=== PATIENT | female | born 1990 | race African-American/Black ===

== ENCOUNTER 2017-01-26 14:20 | Emergency (ER) | payer MEDICAID ==
[~2017-01-26 14:20] MED LIST: SPRI28TA PO
[2017-01-26 14:21] VITALS: BP 115/70; PULSE 96; RESP 17; TEMP 98.2; O2SAT 98
--- NOTE | 2017-01-26 15:51 | PD ---
HPI . chipped tooth since Chief Complaint: Oral / Dental Pain or Problem Time Seen by Provider: 15:50 Travel History International Travel<30 days: No Contact w/Intl Traveler<30days: No Traveled to known affect area: No History of Present Illness HPI 26-year-old female here with complaints of a chipped tooth since last . Patient says that she's not been able to see the dentist as they're not open on the weekends. She is here requesting something for pain. Upon examination # 12 is slightly cracked. There is no infection or oral abscess collection. I discussed with patient that she could use [id number] ibuprofen for this. There is no dentist on staff here that can assist her with her issues. She will need to follow-up with the dentist next week. PFSH Past Medical History Cardiovascular Problems: Yes Genitourinary: No Musculoskeletal: No Neurologic: No Respiratory: No Immunizations Current: No ?: Not : 0 Para: 0 Past Surgical History Cardiac Surgery: Yes (PREMATURE INFANT- REPAIR OF HOLE IN HEART AGE ONE MONTH) Section: Yes Eye Surgery: Yes (BILATERAL CATARACT SURGERY/ A CHILD) Gynecologic Surgery: Yes (C SECTION X 2) Other Surgery: Yes Social History Alcohol Use: No Tobacco Use: No Substance Use: No Allergies-Medications (Allergen,Severity, Reaction): Coded Allergies: No Known Allergies (Verified , 10/04/16) Reported Meds & Prescriptions Reported Meds & Active Scripts Active Sprintec 28 (Norgestimate-Ethinyl Estradiol) 0.25-35 mg-Mcg Tab 1 Tab PO DAILY Review of Systems General / Constitutional: No: Fever Eyes: No: Visual changes HENT: Positive: Dental Difficulties, No: Headaches Cardiovascular: No: Chest Pain or Discomfort Respiratory: No: Shortness of Breath Gastrointestinal: No: Abdominal Pain Genitourinary: No: Dysuria Musculoskeletal: No: Pain Skin: No Rash Neurologic: No: Weakness Psychiatric: No: Depression Endocrine: No: Polydipsia Hematologic/Lymphatic: No: Easy Bruising Physical Exam Narrative GENERAL: AAO x 3, no acute distress, Well-nourished, well-developed patient. SKIN: Warm and dry. No visible rashes or bruising. HEAD: Normocephalic and atraumatic. EYES: No scleral icterus. No injection or drainage. ENT: No nasal drainage noted. Mucous membranes pink. Airway patent. #12 chipped , no evidence of infection, no swelling NECK: Supple, trachea midline. No JVD. CARDIOVASCULAR: Regular rate and rhythm without murmurs, gallops, or rubs. RESPIRATORY: Breath sounds equal bilaterally. No accessory muscle use. No rhonchi or rales. GASTROINTESTINAL: Abdomen soft, non-tender, nondistended. EXTREMITIES: No cyanosis or edema. BACK: Nontender without obvious deformity. No CVA tenderness. PSYCH: AAO x 3, normal affect. Data Data Last Documented VS Vital Signs Date Time Temp Pulse Resp B/P Pulse Ox O2 Delivery O2 Flow Rate FiO2 01/26/17 14:21 98.2 96 17 115/70 98 MDM Medical Decision Making Medical Screen Exam Complete: Yes Emergency Medical Condition: No Medical Record Reviewed: Yes Differential Diagnosis cracked tooth, dental caries, less likely oral abscess Narrative Course 26-year-old female here with complaints of a chipped tooth since last . Patient says that she's not been able to see the dentist as they're not open on the weekends. She is here requesting something for pain. Upon examination # 12 is slightly cracked. There is no infection or oral abscess collection. I discussed with patient that she could use [id number] ibuprofen for this. There is no dentist on staff here that can assist her with her issues. She will need to follow-up with the dentist next week. A medical screening exam was performed: At the time of evaluation the presenting medical condition was determined not to be of an emergent nature. The patient was given the option of receiving additional care, but declined. Patient was given options for additional community resources from which to obtain care. The Patient Has Been advised to seek medical attention for their presenting complaint. The patient has been advised to return to the ER at any time if an emergent condition develops. Diagnosis Primary Impression: Encounter for medical screening examination Condition: Stable Elvia Thornton Jan 26, 2017 15:51
[2017-02-05] MEDS ORDERED: DEPO104I SQ (15:14)
[2017-02-05] MEDS ORDERED: TOPA25TA8 PO (15:24)
[2017-02-05] MEDS ORDERED: SUMA25TA2 PO (15:24)
[2017-03-13] MEDS ORDERED: PREN28CA PO (14:01)
[2017-04-25] MEDS ORDERED: MACR100C2 PO (14:29)
== END 2017-01-26 16:08 | disposition left against medical advice (07) ==
LOC: NETRI 14:20
DX: K08.89 Other specified disorders of teeth and supporting structures (principal); K03.81 Cracked tooth
CPT/HCPCS: 99281

== ENCOUNTER → 2017-04-25 | Outpatient (CLI) | payer MEDICAID ==
[~2017-04-25] MED LIST changes: +DEPO104I SQ; +MACR100C2 PO; +NITR1CAP36 PO; +PREN28CA PO; -SPRI28TA PO; +SUMA25TA2 PO; +TOPA25TA8 PO
== END ==
LOC: HPND 11:00
PROVIDERS: ATTEND Family Medicine
DX: O09.32 Supervision of pregnancy with insufficient antenatal care, second trimester (principal); Z3A.23 23 weeks gestation of pregnancy
CPT/HCPCS: 76805

== ENCOUNTER → 2017-05-22 | Outpatient (CLI) | payer MEDICAID ==
[~2017-05-22] MED LIST changes: +FERR325T2 PO
== END ==
LOC: HPND 12:03
PROVIDERS: ATTEND Family Medicine
DX: O09.32 Supervision of pregnancy with insufficient antenatal care, second trimester (principal); O35.2XX0 Maternal care for (suspected) hereditary disease in fetus, not applicable or unspecified; Z3A.27 27 weeks gestation of pregnancy
CPT/HCPCS: 76811; 76825; 76827; 93325

== ENCOUNTER → 2017-07-04 | Outpatient (CLI) | payer MEDICAID ==
[~2017-07-04] MED LIST changes: -DEPO104I SQ; +IBUP-232 PO; -MACR100C2 PO; -NITR1CAP36 PO; +OXYC1TAB63 PO; +SENN1TAB PO; -SUMA25TA2 PO; -TOPA25TA8 PO
== END ==
LOC: HPND 12:31
PROVIDERS: ATTEND Family Medicine
DX: O35.8XX0 Maternal care for other (suspected) fetal abnormality and damage, not applicable or unspecified (principal); O32.1XX0 Maternal care for breech presentation, not applicable or unspecified; O09.33 Supervision of pregnancy with insufficient antenatal care, third trimester; Z3A.33 33 weeks gestation of pregnancy
CPT/HCPCS: 76816

== ENCOUNTER 2017-08-14 10:09 | Inpatient (IN) | payer MEDICAID ==
[2017-08-14] VITALS (15 sets, daily range): BP systolic 123–151; BP diastolic 56–82; PULSE 76–99; RESP 10–19; TEMP 97.8–99; O2SAT 99–100
[~2017-08-14] VITALS: Ht 157.5 cm; Wt 78.0 kg
[~2017-08-14 10:09] MED LIST changes: -IBUP-232 PO; -OXYC1TAB63 PO; -SENN1TAB PO
[2017-08-14] MEDS ORDERED: LACTATED RINGER'S 1000 ML INJ 1,000 ML IV ONE (10:17)
--- NOTE | 2017-08-14 10:36 | HHI.HP ---
HPI Chief Complaint Scheduled Date Seen: Aug 14, 2017 Time Seen: 10:25 Travel History International Travel<30 Days: No Contact w/Intl Traveler<30Days: No History of Present Illness HPI 27-year-old G for P3 at 39 weeks gestation presenting for scheduled . Today she feels well. Denies vaginal bleeding, leakage of fluid, contractions. Endorses movement. History Past Medical History Narrative Medical Urine GBS positive ?Gestational diabetes (failed [place] screen, never got 3h GTT) Obstetric History Obstetric History C-sections in 2010, 2012, 2013 Past Surgical History Narrative Surgical C-sections (see above) Social History Alcohol Use: No Tobacco Use: No Substance Abuse: No Allergies-Medications (Allergen,Severity, Reaction): Coded Allergies: No Known Allergies (Verified , 08/08/17) Home Meds Active Scripts Ferrous Sulfate DR (Ferrous Sulfate DR) 325 Mg Tabdr, 325 MG PO TID, #90 TAB 11 Refills Prov:Kwabena Hebert MD R3 07/25/17 Vit W/ Ferrous Fumara (C-Kuldeep Dha 28-1-200 mg) 1 Cap Cap, 1 CAP PO DAILY, #30 BOTTLE 9 Refills Prov:Sergio Neil MD R3 03/13/17 Review of Systems Except as stated in HPI: all other systems reviewed are Neg Physical Exam Narrative GENERAL: Well-nourished, well-developed patient. SKIN: Warm and dry. HEAD: Normocephalic and atraumatic. EYES: No scleral icterus. No injection or drainage. ENT: No nasal drainage noted. Mucous membranes pink. Airway patent. CARDIOVASCULAR: Regular rate and rhythm without murmurs, gallops, or rubs. RESPIRATORY: Breath sounds equal bilaterally. No accessory muscle use. ABDOMEN/GI: Abdomen soft, non-tender, no rebound, no guarding FHT's: Category: 1 Baseline: 140 Reactive: Y Variability: moderate Decels: N EXTREMITIES: No cyanosis or edema. NEUROLOGICAL: Awake and alert. Motor and sensory grossly within normal limits. Normal speech. Caprini VTE Risk Assessment Caprini VTE Risk Assessment: No/Low Risk (score <= 1) Data Data Vital Signs Reviewed: Yes Orders Orders Admit To Inpatient (08/14/17 ) Code Status (08/14/17 10:17) Vital Signs (Adult) .ON ADMISSION (08/14/17 10:17) Activity Oob Ad Alma Delia (08/14/17 10:17) Heart (08/14/17 10:17) Urinary Catheter Management GENIE.Q8H (08/14/17 10:17) ^ Preps (08/14/17 10:17) Scd / Vladislav / Foot Pump GENIE.QSHIFT (08/14/17 10:17) ^ Ultrasound For Locatio (08/14/17 10:17) Diet Npo (08/14/17 Lunch) Lactated Ringer's 1000 Ml Inj (Lr 1000 M (08/14/17 10:17) Lactated Ringer's 1000 Ml Inj (Lr 1000 M (08/14/17 10:47) Cefazolin 2 Gm Premix (Ancef 2 Gm Premix (08/14/17 11:30) Citric Acid-Sodium Citrate Liq (Bicitra (08/14/17 12:00) Type And Screen (08/14/17 10:17) Complete Blood Count With Diff (08/14/17 10:17) Urinalysis - C+S If Indicated (08/14/17 10:17) Inpatient Certification (08/14/17 ) Specimen To Be Collected PRN (08/14/17 10:17) Group B Strep: Positive (Urine in 1st trimester, genital screen pos in 3rd trimester) Assessment/Plan Assessment and Plan 27-year-old at 39 weeks presenting for scheduled #1 IUP - Category 1 tracing, reassuring #2 scheduled - admit to labor and delivery, routine preop orders #3 GBS positive, genital and urine - Ancef prior to delivery, inform team Roger Elliott MD R2 Aug 14, 2017 10:36
[2017-08-14] MEDS ORDERED: LACTATED RINGER'S 1000 ML INJ 1,000 ML IV SCH ×2 (10:47→18:00)
[2017-08-14 11:00] LABS: BACTERIA, URINE OCC /hpf; BLOOD, URINE NEG (NEG); GLUCOSE,URINE NEG (NEG); KETONE, URINE NEG (NEG); NITRITE,URINE NEG (NEG); PH, URINE 6.5 (5.0-8.5); SQUAMOUS EPITHELIAL CELL URINE 11 /hpf (0-5); TRANSITIONAL EPI CELLS, URINE <1 /hpf; URINE COLOR YELLOW (YELLW/STRAW)
[2017-08-14 11:01] LABS: COMMENT (UR) CULT NOT INDICATED; CULTURE IF INDICATED CULT NOT INDICATED
[2017-08-14 11:04] LABS: BASOPHIL % 0.4 % (0.0-2.0); EOSINOPHIL # 0.1 TH/MM3 (0-0.4); EOSINOPHIL % 1.2 % (0.0-4.0); HEMATOCRIT 35.8 % (35.0-46.0); HEMO FLAGS DIFF FINAL; LYMPH % 24.4 % (9.0-44.0); LYMPHOCYTE # 2.6 TH/MM3 (1.0-4.8); MEAN CORPUSCULAR HEMOGLOBIN 26.1 PG (27.0-34.0); MONO % 7.1 % (0.0-8.0); NEUT % 66.9 % (16.0-70.0); PLATELET COUNT 187 TH/MM3 (150-450); RED BLOOD COUNT 4.53 MIL/MM3 (4.00-5.30); RED CELL DISTRIBUTION WIDTH 16.2 % (11.6-17.2); WHITE BLOOD COUNT 10.5 TH/MM3 (4.0-11.0)
[2017-08-14] MEDS ORDERED: ceFAZolin 2 GM PREMIX 50 ML IV SCH (11:30)
[2017-08-14] MEDS ORDERED: EPIDURAL-NO SYSTEMIC NARCOTICS PRN (11:49)
[2017-08-14] MEDS ORDERED: EPIDURAL-DIPHENHYDRAMINE HCL 50 MG/ML VIAL IV PUSH PRN (11:49)
[2017-08-14] MEDS ORDERED: EPIDURAL-NALOXONE HCL 0.4 MG/ML AMP IV PUSH PRN (11:49)
[2017-08-14] MEDS ORDERED: EPIDURAL-DIPHENHYDRAMINE HCL 50 MG CAP PO PRN (11:49)
[2017-08-14] MEDS ORDERED: EPIDURAL-DO NOT ADMINISTER ANTICOAGULANTS PRN (11:49)
[2017-08-14] MEDS ORDERED: CITRIC ACID-SODIUM CITRATE LIQ 30 ML UDC PO SCH (12:00)
[2017-08-14] MEDS ORDERED: SODIUM CHLORIDE 0.9% FLUSH 10 ML FLUSH IV FLUSH PRN (13:00)
[2017-08-14] MEDS ORDERED: OXYTOCIN 30 UNITS-500ML PREMIX 500 ML IV ONE (13:00)
[2017-08-14] MEDS ORDERED: ZOLPIDEM TARTRATE 5 MG TAB PO PRN (13:00)
[2017-08-14] MEDS ORDERED: oxyCODONE/ACETAMINOPHEN 5 MG/325 MG TAB PO PRN (13:00)
[2017-08-14] MEDS ORDERED: SIMETHICONE 80 MG CHEWABLE TAB PO PRN (13:00)
[2017-08-14] MEDS ORDERED: ONDANSETRON HCL 4 MG/2 ML VIAL IV PUSH PRN (13:00)
[2017-08-14] MEDS ORDERED: ACETAMINOPHEN 325 MG TAB PO PRN (13:00)
[2017-08-14] MEDS ORDERED: ACETAMINOPHEN 1000 MG/100 ML 100 ML IV ONE (14:00)
--- NOTE | 2017-08-14 16:25 | MP ---
cc: APURVA CARABLLO MD DATE OF SURGERY: 08/14/2017 PREOPERATIVE DIAGNOSIS: Term intrauterine , previous section x 3, for repeat section at 39-weeks. POSTOPERATIVE DIAGNOSIS: Term intrauterine , previous section x 3, for repeat section at 39-weeks. PROCEDURE PERFORMED Repeat low transverse section. SURGEON Apurva Carballo MD G[employer]IC [employer] WORKER Wanda. ANESTHESIA Spinal. PREOPERATIVE NOTE The patient is a 27-year-old black female, G4, P3, previous section x 3, who requests repeat section at 39-weeks. PROCEDURE The patient was taken to the operating room and placed in the supine position on the operating table. Adequate spinal anesthesia was administered. She was prepped and draped for abdominal surgery. A previous Pfannenstiel incision was excised out and cast away. The incision was carried through fascia sharply and the fascia dissected laterally and off the rectus muscle with Bovie coautery. The peritoneal cavity was entered sharply at that time and the incision was extended superior and inferiorly with care used to avoid bladder injury. The bladder blade was placed on the lower edge of the incision. The posterior peritoneum was reflected off the lower uterine segment and placed upon the bladder blade. Transverse hysterotomy was made and extended bluntly bilaterally and a clear fluid noted. A female was delivered at 12:17 p.m., weight 4070 grams, 9 pounds 0 ounces. Apgars were 8 and 9. There were no complications with delivery. Cord blood was obtained. Placenta was manually extracted. The uterus exteriorized, the hysterotomy closed with running layer of 0-Chromic followed by imbricating suture of same. The uterus was examined and noted to have normal ovaries and tubes bilaterally. The uterus was replaced in the peritoneal cavity. The cul-de-sac gutter suctioned from blood. The rectus muscle was reapproximated with stick-ties over 2-0 Vicryl. The fascia was closed in running layer of 0-Vicryl. The subcutaneous tissue was reapproximated with 3-0 plain gut running suture. Skin was closed with 3-0 Monocryl subcuticular stitch. Fresh dressing was applied. Estimated blood loss was 500 ccs. There were no complications. Sponge and needle count were correct x 2. The patient went to recovery in stable condition. MD SOCRATES Denis/PAULY /1:50 PM /4:01 PM
[2017-08-14] MEDS ORDERED: SODIUM CHLORIDE 0.9% FLUSH 10 ML FLUSH IV FLUSH SCH (21:00)
[2017-08-14] MEDS: oxyCODONE/ACETAMINOPHEN 5 MG/325 MG TAB PO PRN (22:42)
[2017-08-14] MEDS: IBUPROFEN 600 MG TAB PO PRN (22:42)
[2017-08-14] MEDS ORDERED: OXYTOCIN 30 UNITS-500ML PREMIX 500 ML IV PRN (23:00)
[2017-08-15 04:30] VITALS: BP 124/65; PULSE 76; RESP 18; TEMP 98.1
[2017-08-15] MEDS: IBUPROFEN 600 MG TAB PO PRN ×3 (05:36→20:06)
[2017-08-15] MEDS: DOCUSATE SODIUM 50 MG/SENNA 8.6 MG TAB PO PRN (05:36)
[2017-08-15] MEDS: oxyCODONE/ACETAMINOPHEN 5 MG/325 MG TAB PO PRN ×3 (05:36→20:06)
[2017-08-15 05:49] LABS: AUTOMATED NEUTROPHIL # 11.7 TH/MM3 (1.8-7.7); BASOPHIL % 0.2 % (0.0-2.0); EOSINOPHIL % 0.3 % (0.0-4.0); HEMATOCRIT 31.7 % (35.0-46.0); HEMO FLAGS DIFF FINAL; LYMPH % 15.8 % (9.0-44.0); LYMPHOCYTE # 2.4 TH/MM3 (1.0-4.8); MEAN CELL VOLUME 78.9 FL (80.0-100.0); MEAN CORPUSCULAR HEMOGLOBIN 26.3 PG (27.0-34.0); MEAN CORPUSCULAR HGB CONC 33.3 % (32.0-36.0); MONO % 5.8 % (0.0-8.0); NEUT % 77.9 % (16.0-70.0); PLATELET COUNT 173 TH/MM3 (150-450); RED BLOOD COUNT 4.02 MIL/MM3 (4.00-5.30); RED CELL DISTRIBUTION WIDTH 16.1 % (11.6-17.2); WHITE BLOOD COUNT 15.1 TH/MM3 (4.0-11.0)
[2017-08-15 08:00] VITALS: BP 120/64; PULSE 77; TEMP 98.2; TEMP 98.4
--- NOTE | 2017-08-15 08:20 | HHI.OB ---
Subjective Remarks 27 year old female s/p repeat C/S at 39 wks gestation, POD1. AFVSS. Patient reports she is feeling well. Bleeding is decreasing and pain is well- controlled. She is breast feeding and bonding well with baby. Ambulating without difficulties. She is tolerating a diet without nausea or vomiting. She has had a bowel movement. She has not passed gas. Denies chest pain, dysuria, shortness of breath, or calf pain. Objective Vitals/I&O Vital Signs Date Time Temp Pulse Resp B/P (MAP) Pulse Ox O2 Delivery O2 Flow Rate FiO2 08/15/17 04:30 76 18 124/65 (84) 08/15/17 04:30 98.1 08/14/17 19:30 97.8 86 18 147/81 (103) 08/14/17 15:15 97.9 08/14/17 15:15 76 16 143/77 (99) 08/14/17 14:33 99 08/14/17 14:33 123/56 (78) 100 08/14/17 14:25 98.0 08/14/17 14:24 98 18 131/69 (89) 99 08/14/17 14:07 100 08/14/17 14:07 87 128/59 (82) 08/14/17 13:54 19 08/14/17 13:50 87 142/65 (90) 100 08/14/17 13:40 16 08/14/17 13:35 79 131/64 (86) 100 08/14/17 13:20 151/68 (95) 08/14/17 13:20 90 10 151/65 (93) 08/14/17 13:03 87 12 129/58 (81) 100 08/14/17 13:03 97.8 08/14/17 10:47 98.4 08/14/17 10:39 97 129/82 (98) 08/14/17 10:26 99.0 Result Diagram: 08/15/17 0533 Objective Remarks GENERAL: Well-nourished, well-developed patient. CARDIOVASCULAR: Regular rate and rhythm without murmurs, gallops, or rubs. RESPIRATORY: Breath sounds equal bilaterally. No accessory muscle use. ABDOMEN/GI: Abdomen soft, non-tender, bowel sounds present. Incision: covered in pressure dressing, will check POD2 Fundus: Firm, non-tender at umbilicus. GENITOURINARY: Light to moderate bleeding. EXTREMITIES: No cyanosis or edema, non-tender, without signs of DVT. Medications and IVs Current Medications Medications (Trade) Dose Ordered Sig/Winston Route Start Time Stop Time Status Last Admin Cefazolin Sodium/ Dextrose 50 ml @ 100 mls/hr EQUINE VET IV 08/14/17 11:30 08/18/17 11:29 08/14/17 11:25 (Bicitra Liq) 30 ml EQUINE VET PO 08/14/17 12:00 08/18/17 11:59 08/14/17 11:24 Lactated Ringer's 1,000 ml @ 100 mls/hr Q10H IV 08/14/17 18:00 08/15/17 13:59 08/14/17 21:43 Oxytocin 500 ml @ 100 mls/hr UNSCH X1 PRN IV 08/14/17 23:00 08/15/17 22:59 (NS Flush) 2 ml BID IV FLUSH 08/14/17 21:00 (NS Flush) 2 ml UNSCH PRN IV FLUSH 08/14/17 13:00 (Mylicon Chew) 80 mg QID PRN PO 08/14/17 13:00 (Tylenol) 650 mg Q6H PRN PO 08/14/17 13:00 (Motrin) 600 mg Q6H PRN PO 08/14/17 13:00 08/15/17 05:36 (Percocet 5-325 Mg) 1 tab Q4H PRN PO 08/14/17 13:00 08/15/17 05:36 (Percocet 5-325 Mg) 2 tab Q4H PRN PO 08/14/17 13:00 (Mary-Colace) 2 tab Q12H PRN PO 08/14/17 13:00 08/15/17 05:36 (Ambien) 5 mg HS PRN PO 08/14/17 13:00 (M-M-R Ii Inj) 0.5 ml ONCE ONCE SQ 08/15/17 16:00 08/15/17 16:01 (Boostrix Inj) 0.5 ml ONCE ONCE IM 08/15/17 16:00 08/15/17 16:01 (Zofran Inj) 4 mg Q6H PRN IV PUSH 08/14/17 13:00 Miscellaneous Information NO SYSTEMIC NARCOTICS TO BE GIVEN FO... UNSCH PRN .XX 08/14/17 11:49 08/15/17 11:48 (Narcan Inj) 0.4 mg UNSCH PRN IV PUSH 08/14/17 11:49 08/15/17 11:48 (Benadryl Inj) 25 mg Q6H PRN IV PUSH 08/14/17 11:49 08/15/17 11:48 (Benadryl) 50 mg Q6H PRN PO 08/14/17 11:49 08/15/17 11:48 Miscellaneous Information ALL NURSING DEPARTMENTS UNSCH PRN .XX 08/14/17 11:49 08/15/17 11:48 Assessment/Plan Assessment and Plan 27 yo female s/p repeat C/S, POD1, GBS positive s/p Ancef - AFVSS - Continue routine care - Motrin and Percocet PRN pain - Encourage OOB - Pelvic rest x 6 wks. Will need 1 week incision check. - Contraception:Nexplanon - Anticipate D/C POD 3 Carol Solano MD R1 Aug 15, 2017 08:20
[2017-08-15] MEDS ORDERED: MEASLES, MUMPS, RUBELLA VACCINE 0.5 ML VIAL SQ ONE (16:00)
[2017-08-15] MEDS ORDERED: DIPHTH/TETANUS/ACEL PERTUSSIS (BOOSTER) 0.5 ML VIAL/PFS IM ONE (16:00)
[2017-08-15 21:10] VITALS: TEMP 98
[2017-08-16] MEDS: IBUPROFEN 600 MG TAB PO PRN ×4 (01:58→20:15)
[2017-08-16] MEDS: oxyCODONE/ACETAMINOPHEN 5 MG/325 MG TAB PO PRN ×4 (01:58→20:16)
[2017-08-16] MEDS: DOCUSATE SODIUM 50 MG/SENNA 8.6 MG TAB PO PRN (07:49)
[2017-08-16 08:00] VITALS: BP 140/75; PULSE 84; RESP 18; TEMP 97.9
--- NOTE | 2017-08-16 09:25 | HHI.OB ---
Subjective Remarks 27 year old female s/p repeat C/S at 39 wks gestation, POD2. AFVSS. Patient reports she is feeling well. Bleeding is decreasing and pain is well- controlled. She is breast feeding and bonding well with baby. Ambulating without difficulties. She is tolerating a diet without nausea or vomiting. She has not had a bowel movement. She has not passed gas. Denies chest pain, dysuria , shortness of breath, or calf pain. (Carol Solano MD R1) Objective Vitals/I&O Vital Signs Date Time Temp Pulse Resp B/P (MAP) Pulse Ox O2 Delivery O2 Flow Rate FiO2 08/15/17 21:10 98.0 (Carol Solano MD R1) Result Diagram: 08/15/17 0533 Objective Remarks GENERAL: Well-nourished, well-developed patient. CARDIOVASCULAR: Regular rate and rhythm without murmurs, gallops, or rubs. RESPIRATORY: Breath sounds equal bilaterally. No accessory muscle use. ABDOMEN/GI: Abdomen soft, non-tender, bowel sounds present. Incision: steri strips in place, clean and dry Fundus: Firm, non-tender at umbilicus. GENITOURINARY: Light to moderate bleeding. EXTREMITIES: No cyanosis or edema, non-tender, without signs of DVT. Medications and IVs Current Medications Medications (Trade) Dose Ordered Sig/Winston Route Start Time Stop Time Status Last Admin Cefazolin Sodium/ Dextrose 50 ml @ 100 mls/hr YARN WEIGHER IV 08/14/17 11:30 08/18/17 11:29 08/14/17 11:25 (Bicitra Liq) 30 ml YARN WEIGHER PO 08/14/17 12:00 08/18/17 11:59 08/14/17 11:24 (NS Flush) 2 ml BID IV FLUSH 08/14/17 21:00 (NS Flush) 2 ml UNSCH PRN IV FLUSH 08/14/17 13:00 (Mylicon Chew) 80 mg QID PRN PO 08/14/17 13:00 (Tylenol) 650 mg Q6H PRN PO 08/14/17 13:00 (Motrin) 600 mg Q6H PRN PO 08/14/17 13:00 08/16/17 07:49 (Percocet 5-325 Mg) 1 tab Q4H PRN PO 08/14/17 13:00 08/16/17 07:50 (Percocet 5-325 Mg) 2 tab Q4H PRN PO 08/14/17 13:00 (Mary-Colace) 2 tab Q12H PRN PO 08/14/17 13:00 08/16/17 07:49 (Ambien) 5 mg HS PRN PO 08/14/17 13:00 (Zofran Inj) 4 mg Q6H PRN IV PUSH 08/14/17 13:00 (Carol Solano MD R1) Assessment/Plan Assessment and Plan 27 yo female s/p repeat C/S, POD2, GBS positive s/p Ancef - AFVSS - Continue routine care - Motrin and Percocet PRN pain - Encourage OOB - Pelvic rest x 6 wks. Will need 1 week incision check. - Contraception:Nexplanon - Anticipate D/C POD 3 (Carol Solano MD R1) Attending Attestation Patient seen and examined, discussed with resident team. I agree with assessment and management as documented and discussed with me. (Kimberly Dalal MD) Carol Solano MD R1 Aug 16, 2017 09:25 Kimberly Dalal MD Aug 16, 2017 12:02
[2017-08-16 20:00] VITALS: BP 129/81; PULSE 86; RESP 16; TEMP 98
[2017-08-17] MEDS: oxyCODONE/ACETAMINOPHEN 5 MG/325 MG TAB PO PRN ×2 (01:52→07:59)
[2017-08-17] MEDS: IBUPROFEN 600 MG TAB PO PRN ×2 (01:53→07:59)
--- NOTE | 2017-08-17 07:11 | HHI.OB ---
Subjective Post Operative Day: 3 Remarks 27 year old female s/p repeat at 39/1 wks gestation, POD 3. AFVSS except for intermittently elevated BP but otherwise WNL. Patient reports she is feeling well. Bleeding is decreasing and pain is well-controlled. She is formula feeding and bonding well with baby. Ambulating without difficulties. She is tolerating a diet without nausea or vomiting. She has not had a bowel movement. She has passed gas. Denies chest pain, dysuria, shortness of breath, IBARRA, vision changes, or calf pain. (Chelsea Watters MD, R3) Remarks Patient seen and evaluated with resident under direct supervision, agree with assessment and plan. (Geronimo Alex MD) Objective Vitals/I&O Vital Signs Date Time Temp Pulse Resp B/P (MAP) Pulse Ox O2 Delivery O2 Flow Rate FiO2 08/16/17 20:00 98.0 86 16 129/81 (97) 08/16/17 08:00 97.9 84 18 140/75 (96) (Chelsea Watters MD, R3) Result Diagram: 08/15/17 0533 Objective Remarks GENERAL: Well-nourished, well-developed patient. CARDIOVASCULAR: Regular rate and rhythm without murmurs, gallops, or rubs. RESPIRATORY: Breath sounds equal bilaterally. No accessory muscle use. ABDOMEN/GI: Abdomen soft, non-tender. Incision: steri strips in place, clean and dry Fundus: Firm, non-tender at umbilicus. GENITOURINARY: Light to moderate bleeding. EXTREMITIES: No cyanosis or edema, non-tender, without signs of DVT. Medications and IVs Current Medications Medications (Trade) Dose Ordered Sig/Winston Route Start Time Stop Time Status Last Admin Cefazolin Sodium/ Dextrose 50 ml @ 100 mls/hr STRAIGHT LINE PRESS SETTER IV 08/14/17 11:30 08/18/17 11:29 08/14/17 11:25 (Bicitra Liq) 30 ml STRAIGHT LINE PRESS SETTER PO 08/14/17 12:00 08/18/17 11:59 08/14/17 11:24 (NS Flush) 2 ml BID IV FLUSH 08/14/17 21:00 (NS Flush) 2 ml UNSCH PRN IV FLUSH 08/14/17 13:00 (Mylicon Chew) 80 mg QID PRN PO 08/14/17 13:00 (Tylenol) 650 mg Q6H PRN PO 08/14/17 13:00 (Motrin) 600 mg Q6H PRN PO 08/14/17 13:00 08/17/17 01:53 (Percocet 5-325 Mg) 1 tab Q4H PRN PO 08/14/17 13:00 08/17/17 01:52 (Percocet 5-325 Mg) 2 tab Q4H PRN PO 08/14/17 13:00 (Mary-Colace) 2 tab Q12H PRN PO 08/14/17 13:00 08/16/17 07:49 (Ambien) 5 mg HS PRN PO 08/14/17 13:00 (Zofran Inj) 4 mg Q6H PRN IV PUSH 08/14/17 13:00 (Chelsea Watters MD, R3) Assessment/Plan Assessment and Plan 27 yo female s/p repeat C/S, POD3 - AFVSS * BP not consistently elevated and patient is asymptomatic. No/low concern for pre-E at this time. - Continue routine care - Motrin and Percocet PRN pain - Encourage OOB - Pelvic rest x 6 wks. Will need 1-2 week incision check. - Contraception:Nexplanon as outpatient. Declines Depo while inpatient - Anticipate D/C today wdw Dr. Paris (Chelsea Watters MD, R3) Chelsea Watters MD, R3 Aug 17, 2017 07:11 Geronimo Alex MD Aug 17, 2017 09:51
[2017-08-17] MEDS ORDERED: IBUP-232 PO (07:13)
[2017-08-17] MEDS ORDERED: OXYC1TAB63 PO (07:13)
[2017-08-17] MEDS ORDERED: SENN1TAB PO (07:13)
--- NOTE | 2017-08-17 07:14 | HHI.DCPOC ---
Discharge Care Plan Diagnosis: (1) delivery delivered Report Symptoms to Your Doctor -Temperature above 100.5 degrees -Redness, of incision or excessive or foul smelling drainage -Unusual pain or calf pain -Increased vaginal bleeding -Painful or difficulty urinating -Feelings of extreme sadness or anxiety after 2 weeks Goals to Promote Your Health * To prevent worsening of your condition and complications * To maintain your health at the optimal level Directions to Meet Your Goals Take your medications as prescribed Follow your dietary instruction Follow activity as directed Ensure plenty of rest for recovery Drink fluids for hydration Keep your appointments as scheduled Take your immunizations and boosters as scheduled If your symptoms worsen call your PCP, if no PCP go to Urgent Care Center or Emergency Room Smoking is Dangerous to Your Health. Avoid second hand smoke Call the 24-hour crisis hotline for domestic abuse at Chelsea Watters MD, R3 Aug 17, 2017 07:14
[2017-08-17 07:30] VITALS: PULSE 85; RESP 18; TEMP 98.4
[2017-08-17] MEDS: DOCUSATE SODIUM 50 MG/SENNA 8.6 MG TAB PO PRN (07:59)
== END 2017-08-17 13:58 | disposition home or self-care (01) | DRG 766 ==
LOC: H2EB 10:09 → H1EA 15:03
PROVIDERS: ADMIT Obstetrics & Gynecology Maternal & Fetal Medicine; ATTEND Obstetrics & Gynecology Maternal & Fetal Medicine
PROC: 10D00Z1 Extraction of Products of Conception, Low, Open Approach (ICD-10-PCS; principal; 2017-08-14)
DX: O99.824 Streptococcus B carrier state complicating childbirth (principal); Z37.0 Single live birth; Z3A.39 39 weeks gestation of pregnancy; O34.211 Maternal care for low transverse scar from previous cesarean delivery
CPT/HCPCS: 59025; 81001; 85025; 86077; 86850; 86870; 86900; 86901; 86922; 90707; 90715; J0131; J0690; J2590; J7120

== ENCOUNTER 2018-02-25 17:35 | Inpatient (IN) | payer MEDICAID ==
[~2018-02-25] VITALS: Ht 154.9 cm; Wt 66.2 kg
[~2018-02-25 17:35] MED LIST changes: +DEPO150I IM; -FERR325T2 PO; -PREN28CA PO
[2018-02-25 17:41] VITALS: BP 119/74; PULSE 132; RESP 17; TEMP 98.1; O2SAT 97
[2018-02-25] MEDS ORDERED: SODIUM CHLOR 0.9% 1000 ML INJ 1,000 ML IV SCH ×3 (18:12→22:00)
[2018-02-25] MEDS ORDERED: SODIUM CHLORIDE 0.9% FLUSH 10 ML FLUSH IV FLUSH PRN ×2 (18:15→22:00)
--- NOTE | 2018-02-25 18:22 | PD ---
HPI Chief Complaint: Syncope/Near-Syncope Time Seen by Provider: 18:04 Travel History International Travel<30 days: No Contact w/Intl Traveler<30days: No Traveled to known affect area: No History of Present Illness HPI 27 YO F presents to the ED for evaluation of "a couple weeks" history of "feeling tired and peeing a lot." Patient estimate 3 urinations per hour. She endorses chest tightness and palpitations for the same time period. She states that today while in [employer] she became "very tired" and felt like she might pass out. She endorses intermittent dizziness. Denies headache, vision changes, SOB, abdominal pain, N/V, changes in bowel habits, dysuria, hematuria. She states her last menstrual period was approximately 15 days ago. Denies risk of . Denies personal history of diabetes, endorses familial history. PFSH Past Medical History Cardiovascular Problems: Yes Genitourinary: No Musculoskeletal: No Neurologic: No Respiratory: No Immunizations Current: No ?: Unknown LMP: 01/2018 : 0 Para: 0 Past Surgical History Cardiac Surgery: Yes (PREMATURE INFANT- REPAIR OF HOLE IN HEART AGE ONE MONTH) Section: Yes Eye Surgery: Yes (BILATERAL CATARACT SURGERY/ A CHILD) Gynecologic Surgery: Yes (C SECTION X 2) Other Surgery: Yes Social History Alcohol Use: No Tobacco Use: No Substance Use: No Allergies-Medications (Allergen,Severity, Reaction): Coded Allergies: No Known Allergies (Verified Adverse Reaction, Unknown, 02/25/18) Reported Meds & Prescriptions Reported Meds & Active Scripts Active Reported Ibuprofen 400 Mg Tab 400 Mg PO Q6H PRN Review of Systems Except as stated in HPI: all other systems reviewed are Neg Physical Exam Narrative GENERAL: Well-nourished, well-developed -Dominican female in no acute distress. SKIN: Focused skin assessment warm/dry. HEAD: Normocephalic. Atraumatic. EYES: No scleral icterus. No injection or drainage. Nystagmus noted, patient states this is her normal. NECK: Supple, trachea midline. No JVD or lymphadenopathy. CARDIOVASCULAR: Regular rate and rhythm without murmurs, gallops, or rubs. RESPIRATORY: Breath sounds clear and equal bilaterally. No accessory muscle use. No tachypnea. GASTROINTESTINAL: Abdomen soft, non-tender, nondistended. MUSCULOSKELETAL: No cyanosis, or edema. NEUROLOGICAL: Awake and alert. Cranial nerves II through XII intact. Motor and sensory grossly within normal limits. Five out of 5 muscle strength in all muscle groups. Normal speech. BACK: Nontender without obvious deformity. No CVA tenderness. Data Data Last Documented VS Vital Signs Date Time Temp Pulse Resp B/P (MAP) Pulse Ox O2 Delivery O2 Flow Rate FiO2 02/25/18 18:53 106 20 131/71 (91) 100 Room Air 02/25/18 17:41 98.1 Orders Orders Electrocardiogram (02/25/18 ) Complete Blood Count With Diff (02/25/18 18:12) Comprehensive Metabolic Panel (02/25/18 18:12) Urinalysis - C+S If Indicated (02/25/18 18:12) Iv Access Insert/Monitor (02/25/18 18:12) Ecg Monitoring (02/25/18 18:12) Oximetry (02/25/18 18:12) Sodium Chlor 0.9% 1000 Ml Inj (Ns 1000 M (02/25/18 18:12) Sodium Chloride 0.9% Flush (Ns Flush) (02/25/18 18:15) Ed Urine Pregnancytest Poc (02/25/18 18:12) Beta Hydroxybutyrate (Acetone) (02/25/18 18:12) Blood Glucose (02/25/18 18:12) Chest, Single Ap (02/25/18 ) Thyroid Stimulating Hormone (02/25/18 18:23) Lactic Acid (02/25/18 18:25) Urine Culture (02/25/18 18:40) Sodium Chlor 0.9% 1000 Ml Inj (Ns 1000 M (02/25/18 19:34) Sodium Chlor 0.9% 1000 Ml Inj (Ns 1000 M (02/25/18 19:34) Dext 5%-Nacl 0.9% 1000 Ml Inj (D5w-Ns 10 (02/25/18 19:34) Insulin Regular (Iv Infusion) (Novolin R (02/25/18 19:45) Potassium Chlor 40 Meq Premix (Kcl 40 Me (02/25/18 19:45) Potassium Chlor 40 Meq Premix (Kcl 40 Me (02/25/18 19:45) Potassium Chlor 20 Meq Premix (Kcl 20 Me (02/25/18 19:45) Potassium Chlor 20 Meq Premix (Kcl 20 Me (02/25/18 19:45) Potassium Chlor 20 Meq Premix (Kcl 20 Me (02/25/18 19:45) Potassium Chlor 20 Meq Premix (Kcl 20 Me (02/25/18 19:45) Potassium Chlor 20 Meq Premix (Kcl 20 Me (02/25/18 19:45) Potassium Chlor 20 Meq Premix (Kcl 20 Me (02/25/18 19:45) Sodium Bicarbonate 8.4% Inj (Sodium Bica (02/25/18 19:45) Sodium Bicarbonate 8.4% Inj (Sodium Bica (02/25/18 19:45) Sodium Phosphate Inj (Sodium Phosphate I (02/25/18 19:45) Hemoglobin (Hgb) A1c (02/25/18 19:34) Arterial Blood Gas (Abg) (02/25/18 ) Admit Order (Ed Use Only) (02/25/18 20:02) Labs Laboratory Tests Test 02/25/18 18:40 02/25/18 19:47 White Blood Count 11.1 TH/MM3 Red Blood Count 6.07 MIL/MM3 Hemoglobin 15.0 GM/DL Hematocrit 48.6 % Mean Corpuscular Volume 80.1 FL Mean Corpuscular Hemoglobin 24.8 PG Mean Corpuscular Hemoglobin Concent 31.0 % Red Cell Distribution Width 14.3 % Platelet Count 280 TH/MM3 Mean Platelet Volume 11.1 FL Neutrophils (%) (Auto) 75.9 % Lymphocytes (%) (Auto) 16.7 % Monocytes (%) (Auto) 7.1 % Eosinophils (%) (Auto) 0.1 % Basophils (%) (Auto) 0.2 % Neutrophils # (Auto) 8.4 TH/MM3 Lymphocytes # (Auto) 1.9 TH/MM3 Monocytes # (Auto) 0.8 TH/MM3 Eosinophils # (Auto) 0.0 TH/MM3 Basophils # (Auto) 0.0 TH/MM3 CBC Comment DIFF FINAL Differential Comment Urine Color LIGHT-YELLOW Urine Turbidity CLEAR Urine pH 6.0 Urine Specific [place] 1.028 Urine Protein TRACE mg/dL Urine Glucose (UA) 1000 mg/dL Urine Ketones 10 mg/dL Urine Occult Blood LARGE Urine Nitrite NEG Urine Bilirubin NEG Urine Urobilinogen LESS THAN 2.0 MG/DL Urine Leukocyte Esterase NEG Urine RBC /hpf Urine WBC 15 /hpf Urine Squamous Epithelial Cells 3 /hpf Microscopic Urinalysis Comment CULTURE INDICATED Blood Urea Nitrogen 28 MG/DL Creatinine 1.74 MG/DL Random Glucose 1171 MG/DL Total Protein 9.7 GM/DL Albumin 4.7 GM/DL Calcium Level 10.9 MG/DL Alkaline Phosphatase 188 U/L Aspartate Amino Transf (AST/SGOT) 26 U/L Alanine Aminotransferase (ALT/SGPT) 42 U/L Total Bilirubin 0.8 MG/DL Sodium Level 123 MEQ/L Potassium Level 6.8 MEQ/L Chloride Level 89 MEQ/L Carbon Dioxide Level 20.4 MEQ/L Anion Gap 14 MEQ/L Estimat Glomerular Filtration Rate 42 ML/MIN Lactic Acid Level 2.4 mmol/L Thyroid Stimulating Hormone 3rd Gen LESS THAN 0.005 uIU/ML B-Hydroxybutyrate 1.57 MMOL/L Blood Gas Puncture Site RT RADIAL Blood Gas Patient Temperature 98.6 Blood Gas HCO3 19 mmol/L Blood Gas Base Excess -6.0 mmol/L Blood Gas Oxygen Saturation 94 % Arterial Blood pH 7.33 Arterial Blood Partial Pressure CO2 37 mmHg Arterial Blood Partial Pressure O2 90 mmHG Arterial Blood Oxygen Content 19.1 Vol % Arterial Blood Carboxyhemoglobin 0.8 % Arterial Blood Methemoglobin 0.7 % Blood Gas Hemoglobin 14.4 G/DL Oxygen Delivery Device ROOM AIR Blood Gas Inspired Oxygen 21 % MDM Medical Decision Making Medical Screen Exam Complete: Yes Emergency Medical Condition: Yes Differential Diagnosis new onset DM versus metabolic derangement versus Narrative Course 27 YO F presents to the ED for evaluation of "a couple weeks" history of "feeling tired and peeing a lot." Patient estimate 3 urinations per hour. She endorses chest tightness and palpitations for the same time period. She states that today while in [employer] she became "very tired" and felt like she might pass out. She endorses intermittent dizziness. LMP~ approximately 15 days ago. Patient's afebrile, pulse 132, BP 119/74, O2 saturation 97% on room air with respiratory rate of 17 on presentation. On exam the patient is alert, oriented. No focal neuro deficits. Chest CTAB. Abdomen soft and nontender. Bedside blood glucose "high." IV was established. Patient was administered 1 L normal saline. EKG rate 116, sinus rhythm. ME interval 148, QRS 86, QTc 371 ms. Normal axis. No acute ST changes. Reviewed by Dr. Perez. ABG: PH 7.33. PCO2 36.7. HCO3 18.8. CBC: WBC 11.1. Hemoglobin 15.0. CMP: Sodium 123, chloride 89. Potassium 6.8. Glucose 1171. BUN 28, creatinine 1.74. Calcium 10.9. TSH: Less than 0.005 Lactic acid 2.4. Beta hydroxybutyrate 1.57. UA: Glucose 1000, ketones 10, large occult blood. Culture pending. DKA protocol was initiated. I discussed the results of the workup with the patient as well as the plan for admission to the ICU. She is agreeable. I spoke with Dr. Flood who agrees to accept the patient to the medicine service. Please see medicine notes for disposition. Nargis Wilkins February 25, 2018 18:22
--- NOTE | 2018-02-25 18:23 | PD ---
Data Data Last Documented VS Vital Signs Date Time Temp Pulse Resp B/P (MAP) Pulse Ox O2 Delivery O2 Flow Rate FiO2 02/25/18 17:41 98.1 132 17 119/74 (89) 97 Orders Orders Electrocardiogram (02/25/18 ) Complete Blood Count With Diff (02/25/18 18:12) Comprehensive Metabolic Panel (02/25/18 18:12) Urinalysis - C+S If Indicated (02/25/18 18:12) Iv Access Insert/Monitor (02/25/18 18:12) Ecg Monitoring (02/25/18 18:12) Oximetry (02/25/18 18:12) Sodium Chlor 0.9% 1000 Ml Inj (Ns 1000 M (02/25/18 18:12) Sodium Chloride 0.9% Flush (Ns Flush) (02/25/18 18:15) Electrocardiogram (02/25/18 18:12) Ed Urine Pregnancytest Poc (02/25/18 18:12) Beta Hydroxybutyrate (Acetone) (02/25/18 18:12) Blood Glucose (02/25/18 18:12) Chest, Single Ap (02/25/18 ) MDM Supervised Visit with CAROL: Yes Narrative Course The history, exam, and medical decision-making in the associated mid-level provider note were completed with my assistance. I reviewed and agree with the findings presented. I attest that I had a [id number] encounter with the patient on the same day, and personally performed and documented my assessment and findings in the medical record. *My assessment and Findings: 27-year-old woman presents emergency department with feeling weak, lightheaded, near syncopal. Found to have an elevated blood sugar. She looks well. Not obviously acidotic on exam. Will check labs, IV fluid rehydration, reassess. Likely admission for new onset diabetes with hyperglycemia, rule out DKA. Geronimo Perez MD February 25, 2018 18:23
[2018-02-25 18:53] VITALS: BP 131/71; PULSE 106; PULSE 108; RESP 20; O2SAT 100
[2018-02-25] MEDS ORDERED: IBUP1TAB5 PO (18:56)
--- NOTE | 2018-02-25 19:02 | RADRPT ---
EXAM DATE/TIME: 02/25/2018 18:27 [place] COMPARISON: No previous studies available for comparison. INDICATIONS : Chest pain. MEDICAL HISTORY : None. SURGICAL HISTORY : None. ENCOUNTER: Initial ACUITY: 1 day PAIN SCORE: 2/10 LOCATION: Bilateral chest FINDINGS: A single view of the chest demonstrates the lungs to be symmetrically aerated without evidence of mas s, infiltrate or effusion. The cardiomediastinal contours are unremarkable. Osseous structures are intact. CONCLUSION: No acute disease. Herminio Alcantar MD on February 25, 2018 at 19:00 Board Certified Radiologist. This report was verified electronically.
[2018-02-25 19:13] LABS: BILIRUBIN, URINE NEG (NEG); BLOOD, URINE LARGE (NEG); GLUCOSE,URINE 1000 mg/dL (NEG); KETONE, URINE 10 mg/dL (NEG); NITRITE,URINE NEG (NEG); SQUAMOUS EPITHELIAL CELL URINE 3 /hpf (0-5); URINE COLOR LIGHT-YELLOW (YELLW/STRAW); URINE LEUKOCYTE ESTERASE NEG (NEG)
[2018-02-25 19:16] LABS: AUTOMATED NEUTROPHIL # 8.4 TH/MM3 (1.8-7.7); BASOPHIL % 0.2 % (0.0-2.0); EOSINOPHIL % 0.1 % (0.0-4.0); HEMATOCRIT 48.6 % (35.0-46.0); LYMPH % 16.7 % (9.0-44.0); LYMPHOCYTE # 1.9 TH/MM3 (1.0-4.8); MEAN CELL VOLUME 80.1 FL (80.0-100.0); MEAN CORPUSCULAR HEMOGLOBIN 24.8 PG (27.0-34.0); MEAN PLATELET VOLUME 11.1 FL (7.0-11.0); MONO % 7.1 % (0.0-8.0); MONOCYTE # 0.8 TH/MM3 (0-0.9); NEUT % 75.9 % (16.0-70.0); PLATELET COUNT 280 TH/MM3 (150-450); RED BLOOD COUNT 6.07 MIL/MM3 (4.00-5.30); RED CELL DISTRIBUTION WIDTH 14.3 % (11.6-17.2); WHITE BLOOD COUNT 11.1 TH/MM3 (4.0-11.0)
[2018-02-25 19:29] LABS: ALBUMIN 4.7 GM/DL (3.4-5.0); ALKALINE PHOSPHATASE 188 U/L (45-117); ALT (GPT) 42 U/L (10-53); AST (GOT) 26 U/L (15-37); BICARBONATE 20.4 MEQ/L (21.0-32.0); BLOOD UREA NITROGEN 28 MG/DL (7-18); CALCIUM 10.9 MG/DL (8.5-10.1); CHLORIDE 89 MEQ/L (98-107); CREATININE 1.74 MG/DL (0.50-1.00); GLOMERULAR FILTRATION RATE 42 ML/MIN (>89); TOTAL BILIRUBIN ADULT 0.8 MG/DL (0.2-1.0); TOTAL PROTEIN 9.7 GM/DL (6.4-8.2)
[2018-02-25 19:33] LABS: GLUCOSE,RANDOM 1171 MG/DL (74-106); SODIUM (NA) 123 MEQ/L (136-145)
[2018-02-25] MEDS ORDERED: DEXT 5%-NACL 0.9% 1000 ML INJ 1,000 ML IV SCH (19:34)
[2018-02-25] MEDS ORDERED: POTASSIUM CHLOR 20 MEQ PREMIX 100 ML IV PRN ×12 (19:45→20:45)
[2018-02-25] MEDS ORDERED: SODIUM PHOSPHATE INJ 15 MMOL in SODIUM CHLORIDE 0.9% INJ 100 ML IV PRN ×2 (19:45→20:45)
[2018-02-25] MEDS ORDERED: POTASSIUM CHLOR 40 MEQ PREMIX 100 ML IV PRN ×4 (19:45→20:45)
[2018-02-25] MEDS ORDERED: INSULIN REGULAR (IV INFUSION) 100 UNITS in SODIUM CHLORIDE 0.9% INJ 99 ML IV PRN ×2 (19:45→21:00)
[2018-02-25] MEDS ORDERED: SODIUM BICARBONATE 8.4% SOLN 50 MEQ/50 ML VIAL IV PUSH PRN ×4 (19:45→20:45)
[2018-02-25] MEDS: SODIUM CHLOR 0.9% 1000 ML INJ 1,000 ML IV SCH ×3 (20:32→21:00)
[2018-02-25 20:38] VITALS: BP 134/71; PULSE 106; RESP 16; O2SAT 100
[2018-02-25] MEDS ORDERED: INSULIN HUMAN REGULAR 1,000 UNITS/10 ML VIAL IV PUSH ONE (20:45)
[2018-02-25] MEDS ORDERED: NURSING INFORMATION XX SCH ×2 (20:45→22:00)
[2018-02-25] MEDS ORDERED: CHLORHEXIDINE GLUCONATE 2 % 1 PACK (2 CLOTHS) TOP PRN ×2 (20:45→22:00)
--- NOTE | 2018-02-25 20:49 | HHI.HP ---
[facility] Service Critical Care Medicine Primary Care Physician Anderson Fernandez MD Admission Diagnosis HHS, new onset DM Diagnosis: Travel History International Travel<30 Days: No Contact w/Intl Traveler <30 Da: No Traveled to Known Affected Are: No History of Present Illness 27-year-old -Macedonian female presents for evaluation of feeling tired and peeing a lot for last couple weeks. Per patient estimate 3 urinations per hour. She endorses chest tightness and palpitations for the same time period. She states that today while in [place] she became "very tired" and felt like she might pass out. She endorses intermittent dizziness. Denies headache, vision changes, SOB, abdominal pain, nausea vomiting, changes in bowel habits, dysuria, hematuria. She states her last menstrual period was approximately 15 days ago. Denies risk of . Denies personal history of diabetes, endorses familial history. Her blood sugar was detected at the emergency department to be 1100 and she is admitted to ICU as a DKA. Review of Systems Constitutional: COMPLAINS OF: Fatigue, Dizziness, Change in appetite, DENIES: Diaphoretic episodes, Fever, Weight gain, Weight loss, Chills, Night Sweats Endocrine: COMPLAINS OF: Polydipsia, Polyuria, DENIES: Abnorml menstrual pattern, Heat/cold intolerance, Polyphagia Eyes: DENIES: Blurred vision, Diplopia, Eye inflammation, Eye pain, Vision loss , Photosensitivity, Double Vision Ears, nose, mouth, throat: DENIES: Tinnitus, Hearing loss, Vertigo, Nasal discharge, Oral lesions, Throat pain, Hoarseness, Ear Pain, Running Nose, Epistaxis, Sinus Pain, Toothache, Odynophagia Respiratory: DENIES: Apneas, Cough, Snoring, Wheezing, Hemoptysis, Sputum production, Shortness of breath Cardiovascular: DENIES: Chest pain, Palpitations, Syncope, Dyspnea on Exertion , PND, Lower Extremity Edema, Orthopnea, Claudication Gastrointestinal: COMPLAINS OF: Anorexia, DENIES: Abdominal pain, Black stools , Bloody stools, Constipation, Diarrhea, Nausea, Vomiting, Difficulty Swallowing Genitourinary: DENIES: Abnormal vaginal bleeding, Dysmenorrhea, Dyspareunia, Sexual dysfunction, Urinary frequency, Urinary incontinence, Urgency, Hematuria , Dysuria, Nocturia, Vaginal discharge Musculoskeletal: DENIES: Joint pain, Muscle aches, Stiffness, Joint Swelling, Back pain, Neck pain Integumentary: DENIES: Abnormal pigmentation, Pruritus, Rash, Nail changes, Breast masses, Breast skin changes, Nipple discharge Hematologic/lymphatic: DENIES: Bruising, Lymphadenopathy Immunologic/allergic: DENIES: Eczema, Urticaria Neurologic: DENIES: Abnormal gait, Headache, Localized weakness, Paresthesias, Seizures, Speech Problems, Tremor, Poor Balance Psychiatric: DENIES: Anxiety, Confusion, Mood changes, Depression, Hallucinations, Agitation, Suicidal Ideation, Homicidal Ideation, Delusions Past Family Social History Allergies: Coded Allergies: No Known Allergies (Verified Allergy, Unknown, 02/25/18) Past Medical History None Past Surgical History Cardiac Surgery: Yes (PREMATURE - REPAIR OF HOLE IN HEART AGE ONE MONTH) Section: Yes Eye Surgery: Yes (BILATERAL CATARACT SURGERY/ A CHILD) Gynecologic Surgery: Yes (C SECTION X 2) Other Surgery: Yes Reported Medications Reported Meds & Active Scripts Active Reported Ibuprofen 400 Mg Tab 400 Mg PO Q6H PRN Active Ordered Medications Current Medications Medications (Trade) Dose Ordered Sig/[place] Route PRN Reason Start Time Stop Time Status Last Admin Dose Admin Sodium Chloride 1,000 ml @ 250 mls/hr Q4H IV 02/25/18 21:00 Dextrose/Sodium Chloride 1,000 ml @ 200 mls/hr Q5H IV 02/25/18 21:00 Insulin Human Regular 100 units/ Sodium Chloride 100 ml @ 6.7 mls/hr TITRATE PRN IV Blood Glucose Control 02/25/18 21:00 Potassium Chloride 100 ml @ 100 mls/hr Q1H PRN IV SEE LABEL COMMENTS 02/25/18 20:45 Potassium Chloride 100 ml @ 50 mls/hr Q2H PRN IV SEE LABEL COMMENTS 02/25/18 20:45 Potassium Chloride 100 ml @ 100 mls/hr Q1H PRN IV SEE LABEL COMMENTS 02/25/18 20:45 Potassium Chloride 100 ml @ 100 mls/hr Q1H PRN IV SEE LABEL COMMENTS 02/25/18 20:45 Potassium Chloride 100 ml @ 50 mls/hr Q2H PRN IV SEE LABEL COMMENTS 02/25/18 20:45 Potassium Chloride 100 ml @ 50 mls/hr Q2H PRN IV SEE LABEL COMMENTS 02/25/18 20:45 Potassium Chloride 100 ml @ 50 mls/hr Q2H PRN IV SEE LABEL COMMENTS 02/25/18 20:45 Potassium Chloride 100 ml @ 50 mls/hr Q2H PRN IV SEE LABEL COMMENTS 02/25/18 20:45 Sodium Bicarbonate (Sodium Bicarbonate 8.4% Inj) 100 meq UNSCH PRN IV PUSH SEE LABEL COMMENTS 02/25/18 20:45 Sodium Bicarbonate (Sodium Bicarbonate 8.4% Inj) 50 meq UNSCH PRN IV PUSH SEE LABEL COMMENTS 02/25/18 20:45 Sodium Phosphate 15 mmol/Sodium Chloride 105 ml @ 25 mls/hr UNSCH PRN IV SEE LABEL COMMENTS 02/25/18 20:45 Acetaminophen (Tylenol) 650 mg Q4H PRN PO Fever or paimn 1-03/0602/25/18 21:00 Ondansetron HCl (Zofran Inj) 4 mg Q6HR PRN IV PUSH nausea 02/25/18 21:00 Morphine Sulfate (Morphine Inj) 2 mg Q4H PRN IM pain 6-10 02/25/18 21:15 Sodium Chloride (NS Flush) 2 ml UNSCH PRN IV FLUSH FLUSH AFTER USING IV ACCESS 02/25/18 22:00 Sodium Chloride (NS Flush) 2 ml BID IV FLUSH 02/26/18 09:00 Famotidine (Pepcid Inj) 20 mg DAILY IV PUSH 02/26/18 09:00 Albuterol/ Ipratropium (Duoneb Neb) 1 ampule Q4HR NEB PRN NEB WHEEZING 02/25/18 22:30 Heparin Sodium (Porcine) (Heparin Inj) 5,000 units Q8HR SQ 02/25/18 22:30 Miscellaneous Information ([facility]) 1 [id number] XX 02/25/18 22:00 Chlorhexidine Gluconate (Chlorhexidine 2% Cloth) 3 pack Taper DAILY@04 TOP 02/26/18 04:00 02/22/19 03:59 Chlorhexidine Gluconate (Chlorhexidine 2% Cloth) 3 pack UNSCH PRN TOP HYGIENIC CARE 02/25/18 22:00 Vancomycin HCl 900 mg/Sodium Chloride 259 ml @ 250 mls/hr Q24H IV 02/26/18 00:00 Miscellaneous Information ([facility] Ordered Lab Info) SPECIFIC LAB TO BE DRAWN:PRATIK DIA DATE TO BE DRLuis Enrique. ONCE ONCE .XX 02/28/18 23:45 02/28/18 23:46 Family History No family history significant of early coronary artery disease or diabetes Social History Negative for tobacco, alcohol, or illicit drug abuse Physical Exam Vital Signs Vital Signs Date Time Temp Pulse Resp B/P (MAP) Pulse Ox O2 Delivery O2 Flow Rate FiO2 02/25/18 20:38 106 16 134/71 (92) 100 Room Air 02/25/18 20:38 106 Room Air 02/25/18 18:53 106 20 131/71 (91) 100 Room Air 02/25/18 18:53 108 20 131/71 (91) 100 Room Air 02/25/18 17:41 98.1 132 17 119/74 (89) 97 Physical Exam GENERAL: Well-nourished, well-developed patient. SKIN: Warm and dry. HEAD: Normocephalic. EYES: No scleral icterus. No injection or drainage. NECK: Supple, trachea midline. No JVD or lymphadenopathy. CARDIOVASCULAR: Regular rate and rhythm without murmurs, gallops, or rubs. RESPIRATORY: Breath sounds equal bilaterally. No accessory muscle use. GASTROINTESTINAL: Abdomen soft, non-tender, nondistended. MUSCULOSKELETAL: No cyanosis, or edema. BACK: Nontender without obvious deformity. NEURO EXAM: GCS: 15 Mental Status: The patient is alert and oriented to person, place, and time with normal speech. Cranial Nerves: Visual acuity intact bilaterally. Visual tamayo normal in all quadrants. Pupils are round, reactive to light. Extraocular movements are intact without ptosis. Hearing is normal bilaterally. Voice is normal. Tongue protrudes midline and moves symmetrically. Reflexes: Biceps, patellar, and Achilles are 2/4 bilaterally. No clonus. Sensation: Sensation is intact bilaterally to pain and light touch. Two-point discrimination is intact. Motor: Good muscle tone. Strength is 5/5 bilaterally. Cerebellar: [id number] and [id number] test normal bilaterally. Laboratory Laboratory Tests Test 02/25/18 18:40 02/25/18 19:47 White Blood Count 11.1 Red Blood Count 6.07 Hemoglobin 15.0 Hematocrit 48.6 Mean Corpuscular Volume 80.1 Mean Corpuscular Hemoglobin 24.8 Mean Corpuscular Hemoglobin Concent 31.0 Red Cell Distribution Width 14.3 Platelet Count 280 Mean Platelet Volume 11.1 Neutrophils (%) (Auto) 75.9 Lymphocytes (%) (Auto) 16.7 Monocytes (%) (Auto) 7.1 Eosinophils (%) (Auto) 0.1 Basophils (%) (Auto) 0.2 Neutrophils # (Auto) 8.4 Lymphocytes # (Auto) 1.9 Monocytes # (Auto) 0.8 Eosinophils # (Auto) 0.0 Basophils # (Auto) 0.0 CBC Comment DIFF FINAL Differential Comment Urine Color LIGHT-YELLOW Urine Turbidity CLEAR Urine pH 6.0 Urine Specific [place] 1.028 Urine Protein TRACE Urine Glucose (UA) 1000 Urine Ketones 10 Urine Occult Blood LARGE Urine Nitrite NEG Urine Bilirubin NEG Urine Urobilinogen LESS THAN 2.0 Urine Leukocyte Esterase NEG Urine RBC Urine WBC 15 Urine Squamous Epithelial Cells 3 Microscopic Urinalysis Comment CULTURE INDICATED Blood Urea Nitrogen 28 Creatinine 1.74 Random Glucose 1171 Total Protein 9.7 Albumin 4.7 Calcium Level 10.9 Alkaline Phosphatase 188 Aspartate Amino Transf (AST/SGOT) 26 Alanine Aminotransferase (ALT/SGPT) 42 Total Bilirubin 0.8 Sodium Level 123 Potassium Level 6.8 Chloride Level 89 Carbon Dioxide Level 20.4 Anion Gap 14 Estimat Glomerular Filtration Rate 42 Lactic Acid Level 2.4 Thyroid Stimulating Hormone 3rd Gen LESS THAN 0.005 B-Hydroxybutyrate 1.57 Blood Gas Puncture Site RT RADIAL Blood Gas Patient Temperature 98.6 Blood Gas HCO3 19 Blood Gas Base Excess -6.0 Blood Gas Oxygen Saturation 94 Arterial Blood pH 7.33 Arterial Blood Partial Pressure CO2 37 Arterial Blood Partial Pressure O2 90 Arterial Blood Oxygen Content 19.1 Arterial Blood Carboxyhemoglobin 0.8 Arterial Blood Methemoglobin 0.7 Blood Gas Hemoglobin 14.4 Oxygen Delivery Device ROOM AIR Blood Gas Inspired Oxygen 21 Date/Time Source Procedure Growth Status 02/25/18 18:40 Urine Clean Catch Urine Culture Pending Received Result Diagram: 02/25/18 1840 02/25/18 1840 Imaging Last 24 hours Impressions Chest X-Ray 02/25/18 0000 Signed Impressions: Service Date/Time: Sunday, February 25, 2018 18:27 - CONCLUSION: No acute disease. Herminio Alcantar MD Septic Shock Reassessment Septic shock perfusion: reassessment completed Caprini VTE Risk Assessment Caprini VTE Risk Assessment: Mod/High Risk (score >= 2) Caprini Risk Assessment Model Point Value = 1 Point Value = 2 Point Value = 3 Point Value = 5 Age 41-60 Minor surgery BMI > 25 kg/m2 Swollen legs Varicose veins or History of unexplained or recurrent spontaneous Oral contraceptives or hormone replacement Sepsis (< 1 month) Serious lung disease, including pneumonia (< 1 month) Abnormal pulmonary function Acute myocardial infarction Congestive heart failure (< 1 month) History of inflammatory bowel disease Medical patient at bed rest Age 61-74 Arthroscopic surgery Major open surgery (> 45 min) Laparoscopic surgery (> 45 min) Malignancy Confined to bed (> 72 hours) Immobilizing plaster cast Central venous access Age >= 75 History of VTE Family history of VTE Factor V Leiden Prothrombin [id number] Lupus anticoagulant Anticardiolipin antibodies Elevated serum homocysteine Heparin-induced thrombocytopenia Other congenital or acquired thrombophilia Stroke (< 1 month) Elective arthroplasty Hip, pelvis, or leg fracture Acute spinal cord injury (< 1 month) Prophylaxis Regimen Total Risk Factor Score Risk Level Prophylaxis Regimen 0-1 Low Early ambulation 2 Moderate Order ONE of the following: *Sequential Compression Device (SCD) *Heparin 5000 units SQ BID 3-4 Higher Order ONE of the following medications: *Heparin 5000 units SQ TID *Enoxaparin/Lovenox 40 mg SQ daily (WT < 150 kg, CrCl > 30 mL/min) *Enoxaparin/Lovenox 30 mg SQ daily (WT < 150 kg, CrCl > 10-29 mL/min) *Enoxaparin/Lovenox 30 mg SQ BID (WT < 150 kg, CrCl > 30 mL/min) AND/OR *Sequential Compression Device (SCD) 5 or more Highest Order ONE of the following medications: *Heparin 5000 units SQ TID (Preferred with Epidurals) *Enoxaparin/Lovenox 40 mg SQ daily (WT < 150 kg, CrCl > 30 mL/min) *Enoxaparin/Lovenox 30 mg SQ daily (WT < 150 kg, CrCl > 10-29 mL/min) *Enoxaparin/Lovenox 30 mg SQ BID (WT < 150 kg, CrCl > 30 mL/min) AND *Sequential Compression Device (SCD) Assessment and Plan Assessment and Plan DKA -New-onset of diabetes -Insulin drip per protocol -Aggressive IV fluid hydration -N.p.o. Hypothyroidism -Undetectable TSH -Symptomatic treatment -Further workup as an outpatient Acute kidney injury -Aggressive IV fluid hydration -Monitor I's and O -Creatinine and electrolytes DVT GI prophylaxis -Vladislav's and SCDs -Subcu heparin -Early aggressive mobilization -Pepcid Critical Care: The total critical care time was 35 minutes. Time to perform other separately billable procedures was not included in the critical care time. Tima Flood MD February 25, 2018 8:49 pm
[2018-02-25] MEDS ORDERED: ACETAMINOPHEN 325 MG TAB PO PRN (21:00)
[2018-02-25] MEDS ORDERED: ONDANSETRON HCL 4 MG/2 ML VIAL IV PUSH PRN (21:00)
[2018-02-25] MEDS: DEXT 5%-NACL 0.9% 1000 ML INJ 1,000 ML IV SCH (21:00)
[2018-02-25] MEDS ORDERED: MORPHINE SULFATE 2 MG/ML SYRINGE IM PRN (21:00)
[2018-02-25] MEDS ORDERED: MORPHINE SULFATE 4 MG/ML INJ IM PRN (21:15)
[2018-02-25] MEDS ORDERED: SODIUM CHLOR 0.9% 1000 ML INJ 1,000 ML IV ONE ×2 (21:46)
[2018-02-25] MEDS ORDERED: SODIUM CHLOR 0.9% 1000 ML INJ 100 ML IV ONE (21:46)
[2018-02-25] MEDS ORDERED: Vancomycin Consult Pharmacy 1 EA OTHER SCH (22:00)
[2018-02-25] MEDS ORDERED: HYDROCORTISONE SOD SUCCINATE 100 MG VIAL IV PUSH SCH (22:00)
[2018-02-25] MEDS ORDERED: PIPERACIL-TAZO 4.5 GM PREMIX 100 ML IV SCH (22:00)
[2018-02-25] MEDS ORDERED: RESP: ALBUTEROL 2.5 MG/IPRATROPIUM 0.5 MG NEB (PRN) NEB (22:30)
[2018-02-25] MEDS: HEPARIN SODIUM - SQ 10,000 UNITS/ML VIAL SQ SCH (22:30)
[2018-02-25 23:00] VITALS: PULSE 97
[2018-02-25] MEDS ORDERED: PIPERACIL-TAZO 3.375 GM PREMIX 50 ML IV SCH (23:00)
[2018-02-25 23:45] VITALS: O2SAT 95
[2018-02-26] VITALS (8 sets, daily range): BP systolic 108–133; BP diastolic 54–69; PULSE 84–107; RESP 13–28; TEMP 98–99.1; O2SAT 99–100
[2018-02-26] MEDS ORDERED: VANCOMYCIN INJ 900 MG in SODIUM CHLOR 0.9% 250 ML INJ 250 ML IV SCH ×2
[2018-02-26] MEDS: CHLORHEXIDINE GLUCONATE 2 % 1 PACK (2 CLOTHS) TOP SCH (00:24)
[2018-02-26] MEDS: SODIUM CHLOR 0.9% 1000 ML INJ 1,000 ML IV SCH ×4 (01:00→20:01)
[2018-02-26 02:08] LABS: BICARBONATE 24.8 MEQ/L (21.0-32.0); CREATININE 1.03 MG/DL (0.50-1.00); MAGNESIUM 2.9 MG/DL (1.5-2.5); PHOSPHORUS 2.6 MG/DL (2.5-4.9)
[2018-02-26] MEDS: DEXT 5%-NACL 0.9% 1000 ML INJ 1,000 ML IV SCH (03:23)
[2018-02-26] MEDS ORDERED: CHLORHEXIDINE GLUCONATE 2 % 1 PACK (2 CLOTHS) TOP SCH (04:00)
[2018-02-26] MEDS ORDERED: DC Insulin drip 2 hrs post basal insulin dose ONE (04:45)
[2018-02-26] MEDS ORDERED: DC previous DKA orders (HMC 1917) ONE (04:45)
[2018-02-26] MEDS ORDERED: DEXTROSE 50% IN WATER 50 ML VIAL(D50) IV PUSH PRN (04:45)
[2018-02-26] MEDS ORDERED: GLUCAGON 1 MG/ML VIAL OTHER PRN (04:45)
[2018-02-26] MEDS: HEPARIN SODIUM - SQ 10,000 UNITS/ML VIAL SQ SCH ×3 (05:48→22:00)
--- NOTE | 2018-02-26 05:56 | PD.CONS ---
HPI Service Family Medicine Consult Requested By Primary Care Physician Anderson Fernandez MD History of Present Illness 27 yo female with no major PMH presenting with several days of malaise, frequent urination. Sensation of fatigue and malaise increased acutely today, causing her to seek care. No dysuria. Denies fever/chills. +chest pain centrally feeling like pressure. Denies SOB, cough, URI symptoms. No rashes or abdominal pain. On admission found to be in DKA. Admitted to ICU and started on insulin drip and IV fluids per protocol. Anion gap closed and transitioned to SQ insulin. Review of Systems Constitutional: COMPLAINS OF: Fatigue, DENIES: Fever, Chills Endocrine: DENIES: Abnorml menstrual pattern Eyes: DENIES: Blurred vision, Vision loss Ears, nose, mouth, throat: DENIES: Throat pain, Hoarseness, Ear Pain Respiratory: DENIES: Cough, Wheezing, Shortness of breath Cardiovascular: COMPLAINS OF: Chest pain, DENIES: Palpitations, Lower Extremity Edema Gastrointestinal: COMPLAINS OF: Diarrhea (loose stools 1 per day for a couple days), DENIES: Abdominal pain, Constipation, Vomiting Genitourinary: COMPLAINS OF: Hematuria (blood on tissue every time she wipes), Nocturia, DENIES: Abnormal vaginal bleeding, Dysuria Musculoskeletal: DENIES: Joint pain, Muscle aches Integumentary: DENIES: Rash Hematologic/lymphatic: DENIES: Bruising Immunologic/allergic: DENIES: Urticaria Neurologic: DENIES: Headache, Localized weakness, Seizures Psychiatric: DENIES: Anxiety, Depression Past Family Social History Past Medical History Bilateral nystagmus since Past Surgical History C/S 2010, 2012, 2013, 2016 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) Feeding tube at due to prematurity (now removed) Reported Medications Reported Meds & Active Scripts Active Reported Ibuprofen 400 Mg Tab 400 Mg PO Q6H PRN Allergies: Coded Allergies: No Known Allergies (Verified Allergy, Unknown, 02/25/18) Active Ordered Medications Current Medications Medications (Trade) Dose Ordered Sig/[place]ston Route Start Time Stop Time Status Last Admin Insulin Human Regular 100 units/ Sodium Chloride 100 ml @ 6.7 mls/hr TITRATE PRN IV 02/25/18 21:00 02/26/18 11:00 (Tylenol) 650 mg Q4H PRN PO 02/25/18 21:00 (Zofran Inj) 4 mg Q6HR PRN IV PUSH 02/25/18 21:00 (Morphine Inj) 2 mg Q4H PRN IM 02/25/18 21:15 (NS Flush) 2 ml UNSCH PRN IV FLUSH 02/25/18 22:00 (NS Flush) 2 ml BID IV FLUSH 02/26/18 09:00 (Duoneb Neb) 1 ampule Q4HR NEB PRN NEB 02/25/18 22:30 (Heparin Inj) 5,000 units Q8HR SQ 02/25/18 22:30 02/25/18 22:30 ([facility] Nursing Information) 1 Q361D XX 02/25/18 22:00 (Chlorhexidine 2% Cloth) 3 pack Taper DAILY@04 TOP 02/26/18 04:00 02/22/19 03:59 02/26/18 00:24 (Chlorhexidine 2% Cloth) 3 pack UNSCH PRN TOP 02/25/18 22:00 Vancomycin HCl 900 mg/Sodium Chloride 259 ml @ 250 mls/hr Q24H IV 02/26/18 00:00 02/26/18 00:25 ([facility] Ordered Lab Info) SPECIFIC LAB TO BE DRAWN:VANCO TROUGH DATE TO BE DR... ONCE ONCE .XX 02/28/18 23:45 02/28/18 23:46 (NovoLIN R SUPPLEMENTAL SCALE) 1 ACHS SLIDING SCALE SQ 02/26/18 08:00 (D50w (Vial) Inj) 50 ml UNSCH PRN IV PUSH 02/26/18 04:45 (Glucagon Inj) 1 mg UNSCH PRN OTHER 02/26/18 04:45 (Pepcid) 20 mg BID PO 02/26/18 09:00 (Levemir Inj) 7 units BID SQ 02/26/18 09:00 Family History HTN DM Social History No smoking No alcohol No drug use Physical Exam Vital Signs Vital Signs Date Time Temp Pulse Resp B/P (MAP) Pulse Ox O2 Delivery O2 Flow Rate FiO2 02/26/18 04:00 98.2 94 28 108/54 (72) 100 02/26/18 03:46 100 02/26/18 00:00 103 02/26/18 00:00 98 Room Air 02/26/18 00:00 98.7 107 13 126/61 (82) 100 02/25/18 23:45 95 02/25/18 23:00 97 02/25/18 22:38 02/25/18 20:38 106 16 134/71 (92) 100 Room Air 02/25/18 20:38 106 Room Air 02/25/18 18:53 106 20 131/71 (91) 100 Room Air 02/25/18 18:53 108 20 131/71 (91) 100 Room Air 02/25/18 17:41 98.1 132 17 119/74 (89) 97 Physical Exam GENERAL: WDWN black female lying in bed tired but in NAD SKIN: No rashes, ecchymoses or lesions. Cool and dry. HEAD: NC/AT EYES: No conjunctival injection or drainage. ENT: MMM NECK: Supple, nontender CARDIOVASCULAR: NRRR. Normal S1/S2. No MRG RESPIRATORY: CTAB. No crackles or wheezes. GASTROINTESTINAL: Abdomen soft, non-distended, non-tender. No hepato- splenomegaly or palpable masses. MUSCULOSKELETAL: Extremities without clubbing, cyanosis, or edema. NEUROLOGICAL: Awake and alert. Cranial nerves II through XII grossly intact. Moves all extremities without difficulty. Normal speech. Laboratory Laboratory Tests Test 02/25/18 18:40 02/25/18 19:47 02/25/18 22:05 02/25/18 22:20 White Blood Count 11.1 Red Blood Count 6.07 Hemoglobin 15.0 Hematocrit 48.6 Mean Corpuscular Volume 80.1 Mean Corpuscular Hemoglobin 24.8 Mean Corpuscular Hemoglobin Concent 31.0 Red Cell Distribution Width 14.3 Platelet Count 280 Mean Platelet Volume 11.1 Neutrophils (%) (Auto) 75.9 Lymphocytes (%) (Auto) 16.7 Monocytes (%) (Auto) 7.1 Eosinophils (%) (Auto) 0.1 Basophils (%) (Auto) 0.2 Neutrophils # (Auto) 8.4 Lymphocytes # (Auto) 1.9 Monocytes # (Auto) 0.8 Eosinophils # (Auto) 0.0 Basophils # (Auto) 0.0 CBC Comment DIFF FINAL Differential Comment Urine Color LIGHT-YELLOW Urine Turbidity CLEAR Urine pH 6.0 Urine Specific [place] 1.028 Urine Protein TRACE Urine Glucose (UA) 1000 Urine Ketones 10 Urine Occult Blood LARGE Urine Nitrite NEG Urine Bilirubin NEG Urine Urobilinogen LESS THAN 2.0 Urine Leukocyte Esterase NEG Urine RBC Urine WBC 15 Urine Squamous Epithelial Cells 3 Microscopic Urinalysis Comment CULTURE INDICATED Blood Urea Nitrogen 28 Creatinine 1.74 Random Glucose 1171 472 Total Protein 9.7 Albumin 4.7 Calcium Level 10.9 Alkaline Phosphatase 188 Aspartate Amino Transf (AST/SGOT) 26 Alanine Aminotransferase (ALT/SGPT) 42 Total Bilirubin 0.8 Sodium Level 123 Potassium Level 6.8 Chloride Level 89 Carbon Dioxide Level 20.4 Anion Gap 14 Estimat Glomerular Filtration Rate 42 Lactic Acid Level 2.4 1.4 Thyroid Stimulating Hormone 3rd Gen LESS THAN 0.005 B-Hydroxybutyrate 1.57 Blood Gas Puncture Site RT RADIAL Blood Gas Patient Temperature 98.6 Blood Gas HCO3 19 Blood Gas Base Excess -6.0 Blood Gas Oxygen Saturation 94 Arterial Blood pH 7.33 Arterial Blood Partial Pressure CO2 37 Arterial Blood Partial Pressure O2 90 Arterial Blood Oxygen Content 19.1 Arterial Blood Carboxyhemoglobin 0.8 Arterial Blood Methemoglobin 0.7 Blood Gas Hemoglobin 14.4 Oxygen Delivery Device ROOM AIR Blood Gas Inspired Oxygen 21 Test 02/25/18 22:35 02/26/18 01:16 Nasal Screen MRSA (PCR) MRSA DETECTED Blood Urea Nitrogen 18 Creatinine 1.03 Random Glucose 179 Calcium Level 9.0 Phosphorus Level 2.6 Magnesium Level 2.9 Sodium Level 149 Potassium Level 4.1 Chloride Level 118 Carbon Dioxide Level 24.8 Anion Gap 6 Estimat Glomerular Filtration Rate 77 Date/Time Source Procedure Growth Status 02/25/18 22:05 Blood Peripheral Aerobic Blood Culture Pending Received 02/25/18 22:05 Blood Peripheral Anaerobic Blood Culture Pending Received 02/25/18 18:40 Urine Clean Catch Urine Culture Pending Received Result Diagram: 02/25/18 1840 02/26/18 0116 Imaging Last Impressions Chest X-Ray 02/25/18 0000 Signed Impressions: Service Date/Time: Sunday, February 25, 2018 18:27 - CONCLUSION: No acute disease. Herminio Alcantar MD Assessment and Plan Assessment and Plan 27 yo female with no major medical history presenting with: Problem List: (1) DKA (diabetic ketoacidoses) ICD Codes: E13.10 - Other specified diabetes mellitus with ketoacidosis without coma Status: Resolved Plan: Admitted in DKA with elevated BHB and anion gap acidosis DKA now resolved, clinically well just tired Unclear trigger - new baby, stress at home? UA not suggestive of infection, Cx pending MRSA nasal swab positive, but no identifiable source - suggests colonization WBC normal CXR negative -Diet diabetic -Stop D5 - 1/2 NS once patient has eaten -Consult outreach educator -F/u A1C -Levemir 7 units BID -SSI -BSG AC/HS; goal 140-180 (2) Type 2 diabetes mellitus ICD Codes: E11.9 - Type 2 diabetes mellitus without complications Status: Chronic Plan: New onset DM -See above (3) FEN/PPX Plan: Fluids: See above plan Elecs: Monitor and replete prn Nutrition: Diet diabetic PPX: DVT - heparin, early ambulation GI: Pepcid BID Code status: Full code Dispo: Transfer to med/surg floor for continued monitoring Problem Qualifiers (1) DKA (diabetic ketoacidoses): Qualified Codes: E11.10 - Type 2 diabetes mellitus with ketoacidosis without coma Roger Elliott MD R2 February 26, 2018 5:56 am
[2018-02-26 06:20] LABS: AUTOMATED NEUTROPHIL # 6.7 TH/MM3 (1.8-7.7); BASOPHIL % 0.4 % (0.0-2.0); EOSINOPHIL # 0.1 TH/MM3 (0-0.4); EOSINOPHIL % 0.7 % (0.0-4.0); HEMATOCRIT 39.3 % (35.0-46.0); HEMOGLOBIN 12.9 GM/DL (11.6-15.3); LYMPH % 24.1 % (9.0-44.0); LYMPHOCYTE # 2.4 TH/MM3 (1.0-4.8); MEAN CELL VOLUME 76.6 FL (80.0-100.0); MEAN CORPUSCULAR HEMOGLOBIN 25.2 PG (27.0-34.0); MEAN CORPUSCULAR HGB CONC 32.8 % (32.0-36.0); MONO % 6.5 % (0.0-8.0); MONOCYTE # 0.6 TH/MM3 (0-0.9); NEUT % 68.3 % (16.0-70.0); PLATELET COUNT 219 TH/MM3 (150-450); RED BLOOD COUNT 5.13 MIL/MM3 (4.00-5.30); RED CELL DISTRIBUTION WIDTH 14.3 % (11.6-17.2); WHITE BLOOD COUNT 9.8 TH/MM3 (4.0-11.0)
[2018-02-26 07:02] LABS: ALBUMIN 3.4 GM/DL (3.4-5.0); ALKALINE PHOSPHATASE 82 U/L (45-117); ALT (GPT) 30 U/L (10-53); AST (GOT) 14 U/L (15-37); BICARBONATE 22.4 MEQ/L (21.0-32.0); BLOOD UREA NITROGEN 15 MG/DL (7-18); CALCIUM 8.5 MG/DL (8.5-10.1); CHLORIDE 116 MEQ/L (98-107); CREATININE 1.07 MG/DL (0.50-1.00); GLOMERULAR FILTRATION RATE 73 ML/MIN (>89); GLUCOSE,RANDOM 347 MG/DL (74-106); SODIUM (NA) 146 MEQ/L (136-145); TOTAL BILIRUBIN ADULT 0.6 MG/DL (0.2-1.0); TOTAL PROTEIN 7.3 GM/DL (6.4-8.2)
[2018-02-26] MEDS: INSULIN DETEMIR 100 UNITS/ML VIAL SQ SCH ×2 (07:54→22:01)
[2018-02-26] MEDS: FAMOTIDINE 20 MG TAB PO SCH ×2 (07:54→20:01)
[2018-02-26] MEDS: INSULIN NovoLIN REGULAR SUPPLEMENTAL SCALE SQ SCH ×4 (08:08→22:00)
--- NOTE | 2018-02-26 08:53 | EKG ---
Date Performed: 02/25/2018 Time Performed: 17:48:02 PTAGE: 27 years EKG: SINUS TACHYCARDIA ABNORMAL RHYTHM ECG INTERPRETATION BASED ON A DEFAULT AGE OF 40 YEARS PREVIOUS TRACING : 11/21/2010 12.15 Since the previous tracing, no significant change not ed DOCTOR: Fadi Casey Interpretating Date/Time 02/26/2018 08:48:47
[2018-02-26] MEDS ORDERED: INSULIN DETEMIR 100 UNITS/ML VIAL SQ SCH (09:00)
[2018-02-26] MEDS: SODIUM CHLORIDE 0.9% FLUSH 10 ML FLUSH IV FLUSH SCH ×2 (09:00→20:01)
[2018-02-26] MEDS ORDERED: FAMOTIDINE 20 MG/2 ML VIAL IV PUSH SCH (09:00)
--- NOTE | 2018-02-26 09:17 | HHI.HP ---
[facility] Service Family Medicine Primary Care Physician Anderson Fernadnez MD Admission Diagnosis HHS, new onset DM Diagnoses: (1) Hyperosmolar non-ketotic state in patient with type 2 diabetes mellitus Diagnosis: Principal (2) Type 2 diabetes mellitus Diagnosis: Principal (3) FEN/PPX Diagnosis: Principal International Travel<30 Days: No Contact w/Intl Traveler<30days: No Known Affected Area: No History of Present Illness Ms Aviles is a 27 yo female with no major PMH presenting with several days of malaise, frequent urination. Sensation of fatigue and malaise increased acutely , causing her to seek care. No dysuria. Denies fever/chills. +chest pain centrally feeling like pressure. Denies SOB, cough, URI symptoms. No rashes or abdominal pain. On admission found to be in HHS. Admitted to ICU and started on insulin drip and IV fluids per protocol. now transitioned to SQ insulin. Per pt, she was feeling worse and worse prior to coming to ED. She was weak and when she dropped her children off at school "they thought I was drunk", per pt. She had such weakness and felt lightheaded and "dizzy" but is much improved since coming into the hospital. Review of Systems Other Constitutional: COMPLAINS OF: Fatigue, DENIES: Fever, Chills Endocrine: DENIES: Abnorml menstrual pattern Eyes: DENIES: Blurred vision, Vision loss Ears, nose, mouth, throat: DENIES: Throat pain, Hoarseness, Ear Pain Respiratory: DENIES: Cough, Wheezing, Shortness of breath Cardiovascular: COMPLAINS OF: Chest pain, DENIES: Palpitations, Lower Extremity Edema Gastrointestinal: COMPLAINS OF: Diarrhea (loose stools 1 per day for a couple days), DENIES: Abdominal pain, Constipation, Vomiting Genitourinary: COMPLAINS OF: Hematuria (blood on tissue every time she wipes), Nocturia, DENIES: Abnormal vaginal bleeding, Dysuria Musculoskeletal: DENIES: Joint pain, Muscle aches Integumentary: DENIES: Rash Hematologic/lymphatic: DENIES: Bruising Immunologic/allergic: DENIES: Urticaria Neurologic: DENIES: Headache, Localized weakness, Seizures Psychiatric: DENIES: Anxiety, Depression Past Family Social History Past Medical History Bilateral nystagmus since Past Surgical History C/S 2010, 2012, 2013, 2017 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) Feeding tube at due to prematurity (now removed) Allergies: Coded Allergies: No Known Allergies (Verified Allergy, Unknown, 02/25/18) Family History HTN DM Social History No smoking No alcohol No drug use Physical Exam Vital Signs Vital Signs Date Time Temp Pulse Resp B/P (MAP) Pulse Ox O2 Delivery O2 Flow Rate FiO2 02/26/18 08:00 98.0 95 22 120/69 (86) 100 02/26/18 07:00 100 Room Air 02/26/18 07:00 84 02/26/18 04:00 98.2 94 28 108/54 (72) 100 02/26/18 03:46 100 02/26/18 00:00 103 02/26/18 00:00 98 Room Air 02/26/18 00:00 98.7 107 13 126/61 (82) 100 02/25/18 23:45 95 02/25/18 23:00 97 02/25/18 22:38 02/25/18 20:38 106 16 134/71 (92) 100 Room Air 02/25/18 20:38 106 Room Air 02/25/18 18:53 106 20 131/71 (91) 100 Room Air 02/25/18 18:53 108 20 131/71 (91) 100 Room Air 02/25/18 17:41 98.1 132 17 119/74 (89) 97 Physical Exam GENERAL: WDWN black female lying in bed talkative and alert. obvious nystagmus seen particularly on far lateral gaze, chronic per pt SKIN: No rashes, ecchymoses or lesions. Cool and dry. HEAD: NC/AT EYES: No conjunctival injection or drainage. ENT: MMM NECK: Supple, nontender CARDIOVASCULAR: RRR. Normal S1/S2. No MRG RESPIRATORY: CTAB. No crackles or wheezes. GASTROINTESTINAL: Abdomen soft, non-distended, non-tender. No hepato- splenomegaly or palpable masses. MUSCULOSKELETAL: Extremities without clubbing, cyanosis, or edema. NEUROLOGICAL: Awake and alert. Cranial nerves II through XII grossly intact. Moves all extremities without difficulty. Normal speech. Laboratory Laboratory Tests Test 02/25/18 18:40 02/25/18 19:47 02/25/18 22:05 02/25/18 22:20 White Blood Count 11.1 Red Blood Count 6.07 Hemoglobin 15.0 Hematocrit 48.6 Mean Corpuscular Volume 80.1 Mean Corpuscular Hemoglobin 24.8 Mean Corpuscular Hemoglobin Concent 31.0 Red Cell Distribution Width 14.3 Platelet Count 280 Mean Platelet Volume 11.1 Neutrophils (%) (Auto) 75.9 Lymphocytes (%) (Auto) 16.7 Monocytes (%) (Auto) 7.1 Eosinophils (%) (Auto) 0.1 Basophils (%) (Auto) 0.2 Neutrophils # (Auto) 8.4 Lymphocytes # (Auto) 1.9 Monocytes # (Auto) 0.8 Eosinophils # (Auto) 0.0 Basophils # (Auto) 0.0 CBC Comment DIFF FINAL Differential Comment Urine Color LIGHT-YELLOW Urine Turbidity CLEAR Urine pH 6.0 Urine Specific [place] 1.028 Urine Protein TRACE Urine Glucose (UA) 1000 Urine Ketones 10 Urine Occult Blood LARGE Urine Nitrite NEG Urine Bilirubin NEG Urine Urobilinogen LESS THAN 2.0 Urine Leukocyte Esterase NEG Urine RBC Urine WBC 15 Urine Squamous Epithelial Cells 3 Microscopic Urinalysis Comment CULTURE INDICATED Blood Urea Nitrogen 28 Creatinine 1.74 Random Glucose 1171 472 Total Protein 9.7 Albumin 4.7 Calcium Level 10.9 Alkaline Phosphatase 188 Aspartate Amino Transf (AST/SGOT) 26 Alanine Aminotransferase (ALT/SGPT) 42 Total Bilirubin 0.8 Sodium Level 123 Potassium Level 6.8 Chloride Level 89 Carbon Dioxide Level 20.4 Anion Gap 14 Estimat Glomerular Filtration Rate 42 Lactic Acid Level 2.4 1.4 Thyroid Stimulating Hormone 3rd Gen LESS THAN 0.005 B-Hydroxybutyrate 1.57 Blood Gas Puncture Site RT RADIAL Blood Gas Patient Temperature 98.6 Blood Gas HCO3 19 Blood Gas Base Excess -6.0 Blood Gas Oxygen Saturation 94 Arterial Blood pH 7.33 Arterial Blood Partial Pressure CO2 37 Arterial Blood Partial Pressure O2 90 Arterial Blood Oxygen Content 19.1 Arterial Blood Carboxyhemoglobin 0.8 Arterial Blood Methemoglobin 0.7 Blood Gas Hemoglobin 14.4 Oxygen Delivery Device ROOM AIR Blood Gas Inspired Oxygen 21 Test 02/25/18 22:35 02/26/18 01:16 02/26/18 06:04 Nasal Screen MRSA (PCR) MRSA DETECTED Blood Urea Nitrogen 18 15 Creatinine 1.03 1.07 Random Glucose 179 347 Calcium Level 9.0 8.5 Phosphorus Level 2.6 Magnesium Level 2.9 Sodium Level 149 146 Potassium Level 4.1 4.7 Chloride Level 118 116 Carbon Dioxide Level 24.8 22.4 Anion Gap 6 8 Estimat Glomerular Filtration Rate 77 73 White Blood Count 9.8 Red Blood Count 5.13 Hemoglobin 12.9 Hematocrit 39.3 Mean Corpuscular Volume 76.6 Mean Corpuscular Hemoglobin 25.2 Mean Corpuscular Hemoglobin Concent 32.8 Red Cell Distribution Width 14.3 Platelet Count 219 Mean Platelet Volume 10.0 Neutrophils (%) (Auto) 68.3 Lymphocytes (%) (Auto) 24.1 Monocytes (%) (Auto) 6.5 Eosinophils (%) (Auto) 0.7 Basophils (%) (Auto) 0.4 Neutrophils # (Auto) 6.7 Lymphocytes # (Auto) 2.4 Monocytes # (Auto) 0.6 Eosinophils # (Auto) 0.1 Basophils # (Auto) 0.0 CBC Comment DIFF FINAL Differential Comment Total Protein 7.3 Albumin 3.4 Alkaline Phosphatase 82 Aspartate Amino Transf (AST/SGOT) 14 Alanine Aminotransferase (ALT/SGPT) 30 Total Bilirubin 0.6 Date/Time Source Procedure Growth Status 02/25/18 22:05 Blood Peripheral Aerobic Blood Culture Pending Received 02/25/18 22:05 Blood Peripheral Anaerobic Blood Culture Pending Received 02/25/18 18:40 Urine Clean Catch Urine Culture Pending Received Result Diagram: 02/26/18 0604 02/26/18 0604 Imaging Last Impressions Chest X-Ray 02/25/18 0000 Signed Impressions: Service Date/Time: Sunday, February 25, 2018 18:27 - CONCLUSION: No acute disease. Herminio Alcantar MD Caprini VTE Risk Assessment Caprini VTE Risk Assessment: Mod/High Risk (score >= 2) Caprini Risk Assessment Model Point Value = 1 Point Value = 2 Point Value = 3 Point Value = 5 Age 41-60 Minor surgery BMI > 25 kg/m2 Swollen legs Varicose veins or History of unexplained or recurrent spontaneous Oral contraceptives or hormone replacement Sepsis (< 1 month) Serious lung disease, including pneumonia (< 1 month) Abnormal pulmonary function Acute myocardial infarction Congestive heart failure (< 1 month) History of inflammatory bowel disease Medical patient at bed rest Age 61-74 Arthroscopic surgery Major open surgery (> 45 min) Laparoscopic surgery (> 45 min) Malignancy Confined to bed (> 72 hours) Immobilizing plaster cast Central venous access Age >= 75 History of VTE Family history of VTE Factor V Leiden Prothrombin [id number] Lupus anticoagulant Anticardiolipin antibodies Elevated serum homocysteine Heparin-induced thrombocytopenia Other congenital or acquired thrombophilia Stroke (< 1 month) Elective arthroplasty Hip, pelvis, or leg fracture Acute spinal cord injury (< 1 month) Prophylaxis Regimen Total Risk Factor Score Risk Level Prophylaxis Regimen 0-1 Low Early ambulation 2 Moderate Order ONE of the following: *Sequential Compression Device (SCD) *Heparin 5000 units SQ BID 3-4 Higher Order ONE of the following medications: *Heparin 5000 units SQ TID *Enoxaparin/Lovenox 40 mg SQ daily (WT < 150 kg, CrCl > 30 mL/min) *Enoxaparin/Lovenox 30 mg SQ daily (WT < 150 kg, CrCl > 10-29 mL/min) *Enoxaparin/Lovenox 30 mg SQ BID (WT < 150 kg, CrCl > 30 mL/min) AND/OR *Sequential Compression Device (SCD) 5 or more Highest Order ONE of the following medications: *Heparin 5000 units SQ TID (Preferred with Epidurals) *Enoxaparin/Lovenox 40 mg SQ daily (WT < 150 kg, CrCl > 30 mL/min) *Enoxaparin/Lovenox 30 mg SQ daily (WT < 150 kg, CrCl > 10-29 mL/min) *Enoxaparin/Lovenox 30 mg SQ BID (WT < 150 kg, CrCl > 30 mL/min) AND *Sequential Compression Device (SCD) Assessment and Plan Assessment and Plan 27 yo female with no major medical history presenting with: Problem List: (1) Hyperosmolar non-ketotic state in patient with type 2 diabetes mellitus ICD Codes: E11.01 - Type 2 diabetes mellitus with hyperosmolarity with coma Status: Acute Plan: Admitted in HHS not DKA with elevated BHB and no anion gap acidosis as her pH was more than 7.3 no DKA, clinically well just tired an dneeds more fluid Unclear trigger - new baby, stress at home? new onset DM UA not suggestive of infection, Cx pending MRSA nasal swab positive, but no identifiable source - suggests colonization WBC normal CXR negative -Diet diabetic -Stop D5 - 1/2 NS once patient has eaten -Consult medical educator plus plater apprentice -F/u A1C -Levemir 7 units BID -SSI -BSG AC/HS; goal 140-180 (2) Type 2 diabetes mellitus ICD Codes: E11.9 - Type 2 diabetes mellitus without complications Status: Acute Plan: New onset DM -See above (3) FEN/PPX Plan: Fluids: See above plan. will give extra fluids as she has HHS and needs probably 9 liters total even more than DKA Elecs: Monitor and replete prn Nutrition: Diet diabetic PPX: DVT - heparin, early ambulation GI: Pepcid BID Code status: Full code Dispo: Transfer to med/surg floor for continued monitoring Problem Qualifiers (1) Type 2 diabetes mellitus: Qualified Codes: E11.9 - Type 2 diabetes mellitus without complications Sharla Feliz MD February 26, 2018 09:17
[2018-02-27] VITALS: PULSE 79
[2018-02-27 00:49] VITALS: BP 129/61; PULSE 104; RESP 18; O2SAT 100
[2018-02-27] MEDS: CHLORHEXIDINE GLUCONATE 2 % 1 PACK (2 CLOTHS) TOP SCH (03:02)
[2018-02-27 04:00] VITALS: PULSE 68
[2018-02-27] MEDS: HEPARIN SODIUM - SQ 10,000 UNITS/ML VIAL SQ SCH ×2 (05:21→12:58)
[2018-02-27 05:56] VITALS: BP 152/63; PULSE 106; RESP 18; TEMP 99.2; O2SAT 98
[2018-02-27 06:53] LABS: AUTOMATED NEUTROPHIL # 3.4 TH/MM3 (1.8-7.7); BASOPHIL % 0.1 % (0.0-2.0); EOSINOPHIL # 0.2 TH/MM3 (0-0.4); EOSINOPHIL % 2.5 % (0.0-4.0); HEMATOCRIT 36.8 % (35.0-46.0); HEMOGLOBIN 12.3 GM/DL (11.6-15.3); LYMPHOCYTE # 3.3 TH/MM3 (1.0-4.8); MEAN CELL VOLUME 76.2 FL (80.0-100.0); MEAN CORPUSCULAR HEMOGLOBIN 25.5 PG (27.0-34.0); MEAN CORPUSCULAR HGB CONC 33.5 % (32.0-36.0); MONO % 5.9 % (0.0-8.0); MONOCYTE # 0.4 TH/MM3 (0-0.9); NEUT % 46.5 % (16.0-70.0); PLATELET COUNT 179 TH/MM3 (150-450); RED BLOOD COUNT 4.83 MIL/MM3 (4.00-5.30); RED CELL DISTRIBUTION WIDTH 14.4 % (11.6-17.2); WHITE BLOOD COUNT 7.4 TH/MM3 (4.0-11.0)
[2018-02-27 07:19] LABS: ALT (GPT) 30 U/L (10-53); AST (GOT) 21 U/L (15-37); BICARBONATE 22.9 MEQ/L (21.0-32.0); BLOOD UREA NITROGEN 10 MG/DL (7-18); CALCIUM 8.5 MG/DL (8.5-10.1); CHLORIDE 110 MEQ/L (98-107); CREATININE 0.81 MG/DL (0.50-1.00); GLOMERULAR FILTRATION RATE 101 ML/MIN (>89); GLUCOSE,RANDOM 250 MG/DL (74-106); SODIUM (NA) 141 MEQ/L (136-145)
[2018-02-27 07:20] LABS: ALKALINE PHOSPHATASE 66 U/L (45-117); TOTAL BILIRUBIN ADULT 0.4 MG/DL (0.2-1.0); TOTAL PROTEIN 6.4 GM/DL (6.4-8.2)
--- NOTE | 2018-02-27 07:32 | HHI.FPPN ---
Subjective Remarks Pt seen and examined this morning. No acute events overnight. She reports that she is doing much better today. She has been able to ambulate in her room without feeling dizzy. She denies chest pain, feeling short of breath, abdominal pain, pain in her legs. She has no additional acute concerns. She was counseled that she will need to use insulin when she goes home and monitor her blood sugars closely. (Sergio Neil MD R3) Objective Vitals Vital Signs Date Time Temp Pulse Resp B/P (MAP) Pulse Ox O2 Delivery O2 Flow Rate FiO2 02/27/18 05:56 99.2 106 18 152/63 (92) 98 02/27/18 04:00 Room Air 02/27/18 04:00 68 02/27/18 00:49 104 18 129/61 (83) 100 02/27/18 00:00 Room Air 02/27/18 00:00 79 02/26/18 20:00 Room Air 02/26/18 20:00 88 02/26/18 20:00 98.4 89 18 123/56 (78) 100 02/26/18 16:00 98.6 97 18 133/60 (84) 99 02/26/18 16:00 95 02/26/18 12:00 99.1 95 18 117/59 (78) 100 02/26/18 08:00 98.0 95 22 120/69 (86) 100 I/O 02/26/18 02/26/18 02/26/18 02/27/18 02/27/18 02/27/18 07:00 15:00 23:00 07:00 15:00 23:00 Intake Total 360 ml 960 ml Output Total 800 ml Balance -440 ml 960 ml Intake Oral 360 ml 960 ml Output Urine Total 800 ml Stool Total 0 ml # Voids 2 # Bowel Movements 0 (Sergio Neil MD R3) Result Diagram: 02/27/18 0610 02/27/18 0610 Objective Remarks GENERAL: WDWN black female lying in bed talkative and alert. obvious horizontal nystagmus seen particularly on far lateral gaze, chronic per pt SKIN: No rashes, ecchymoses or lesions. Cool and dry. HEAD: NC/AT EYES: No conjunctival injection or drainage. ENT: MMM NECK: Supple, nontender CARDIOVASCULAR: RRR. Normal S1/S2. No MRG RESPIRATORY: CTAB. No crackles or wheezes. GASTROINTESTINAL: Abdomen soft, non-distended, non-tender.+BS MUSCULOSKELETAL: Extremities without clubbing, cyanosis, or edema. NEUROLOGICAL: Awake and alert. Cranial nerves II through XII grossly intact. Moves all extremities without difficulty. Normal speech. (Sergio Neil MD R3) A/P Assessment and Plan 27 yo female with no major medical history presenting with: HHS, newly diagnosed with diabetes. Discharge Planning Anticipate discharge later today or tomorrow. (Sergio Neil MD R3) Attending Attestation Patient seen and examined. Case reviewed and discussed with the resident team. Agree with plan of care as discussed with me and documented in the resident note. she feels so much better and wants to go home. we discussed that she likely will need thyroid medicine as with a TSH so low almost everyone needs replacement. advised her that rechecking as an outpt was prudent (Sharla Feliz MD) Problem List: (1) Hyperosmolar non-ketotic state in patient with type 2 diabetes mellitus ICD Codes: E11.01 - Type 2 diabetes mellitus with hyperosmolarity with coma Status: Acute Plan: Admitted in [facility] not DKA with elevated BHB and no anion gap acidosis as her pH was more than 7.3 Unclear trigger - new baby, stress at home? new onset DM UA not suggestive of infection, Cx pending MRSA nasal swab positive, but no identifiable source - suggests colonization WBC normal CXR negative -Diet diabetic -See fluids below -Consult inclusion paraeducator plus surgery center administrator -F/u A1C Pending -Levemir increased to 10 units BID, blood sugars today in the 200's -SSI -BSG AC/HS; goal 140-180 (2) Type 2 diabetes mellitus ICD Codes: E11.9 - Type 2 diabetes mellitus without complications Status: Acute Plan: New onset DM -See above -Pt to be discharged on insulin -She has met with diabetic education in the hospital but will have to follow up closely with PCP (3) Low TSH level ICD Codes: R94.6 - Abnormal results of thyroid function studies Plan: Pt with very low TSH, possibly due to acute illness related to [facility] Will check T4 (4) FEN/PPX Plan: Fluids: Pt previously on NS 100mls/hr, will stop fluids and encourage oral hydration Elecs: Monitor and replete prn Nutrition: Diet diabetic PPX: DVT - heparin, early ambulation GI: Pepcid BID Code status: Full code (Sergio Neil MD R3) Problem Qualifiers (1) Type 2 diabetes mellitus: Qualified Codes: E11.9 - Type 2 diabetes mellitus without complications Sergio Neil MD R3 February 27, 2018 07:32 Sharla Feliz MD February 28, 2018 11:22
[2018-02-27 08:00] VITALS: PULSE 90
[2018-02-27] MEDS: SODIUM CHLORIDE 0.9% FLUSH 10 ML FLUSH IV FLUSH SCH (08:44)
[2018-02-27] MEDS: INSULIN NovoLIN REGULAR SUPPLEMENTAL SCALE SQ SCH ×2 (08:44→12:57)
[2018-02-27] MEDS: SODIUM CHLOR 0.9% 1000 ML INJ 1,000 ML IV SCH (08:44)
[2018-02-27] MEDS: FAMOTIDINE 20 MG TAB PO SCH (08:45)
[2018-02-27] MEDS: INSULIN DETEMIR 100 UNITS/ML VIAL SQ SCH (08:45)
[2018-02-27] MEDS ORDERED: INSULIN DETEMIR 100 UNITS/ML VIAL SQ SCH (09:00)
--- NOTE | 2018-02-27 13:49 | HHI.DCPOC ---
Discharge Care Plan Diagnosis: (1) Type 2 diabetes mellitus (2) Hyperosmolar non-ketotic state in patient with type 2 diabetes mellitus (3) Low TSH level Goals to Promote Your Health * To prevent worsening of your condition and complications * To maintain your health at the optimal level Directions to Meet Your Goals Take your medications as prescribed Follow your dietary instruction Follow activity as directed Keep your appointments as scheduled Take your immunizations and boosters as scheduled If your symptoms worsen call your PCP, if no PCP go to Urgent Care Center or Emergency Room Smoking is Dangerous to Your Health. Avoid second hand smoke Call the 24-hour hour crisis hotline for domestic abuse at Sergio Neil MD R3 February 27, 2018 13:49
[2018-02-27] MEDS ORDERED: LANCETS1 MI1 (13:56)
[2018-02-27] MEDS ORDERED: GLUCKIT15 (13:56)
[2018-02-27] MEDS ORDERED: LEVEMIR SQ (13:56)
[2018-02-27] MEDS ORDERED: GLUCTES12 (13:56)
[2018-02-27] MEDS ORDERED: INSU1MIS15 (13:56)
[2018-02-27 14:37] LABS: HEMOGLOBIN A1C 13.6 % (4.3-6.0)
[2018-02-28] MEDS ORDERED: PHARMACY ORDERED LAB ONE (23:45)
== END 2018-02-27 17:18 | disposition home or self-care (01) | DRG 638 ==
LOC: NEPE 17:35 → NEDA 20:05 → N03A 22:26 → N04A 02-26 10:16
PROVIDERS: ADMIT Internal Medicine Critical Care Medicine; ATTEND Internal Medicine Critical Care Medicine
DX: E11.00 Type 2 diabetes mellitus with hyperosmolarity without nonketotic hyperglycemic-hyperosmolar coma (NKHHC) (principal); N17.9 Acute kidney failure, unspecified; E11.10 Type 2 diabetes mellitus with ketoacidosis without coma; E03.9 Hypothyroidism, unspecified; R55 Syncope and collapse; H55.00 Unspecified nystagmus; Z83.3 Family history of diabetes mellitus
CPT/HCPCS: 36600; 71045; 80048; 80053; 81001; 82010; 82805; 82947; 82948; 83036; 83605; 83735; 84100; 84436; 84443; 84703; 85025; 87040; 87086; 87641; 93005; 96360; J1644; J1817; J3370; J7030; J7042; J7050